=== PATIENT | female | born 1995 | race Caucasian/White ===

== ENCOUNTER 2024-07-27 13:41 | Outpatient (AMB) | payer MEDICAID, SELFPAY ==
[2024-07-27 13:55] VITALS: BP 123/75; PULSE 90; RESP 18; TEMP 36.8; O2SAT 98; BMI 27.7
--- NOTE | 2024-07-27 13:55 | OBCLNT_ITS ---
Vital Signs 07/27/24 13:55 Height 1.57 m Height Method Stated Weight 68.719 kg Weight Measurement Method Standing Scale BMI 27.7 BP 123/75 Blood Pressure Source Automatic Cuff Blood Pressure Location Right Upper Arm Position Sitting Respiration 18 Pulse 90 Pulse Source Monitor Temp 98.2 F Temp Source Temporal Artery Scan Pulse Oximetry (%) 98 Oxygen Delivery Method Room Air Allergies/Home Meds Allergies & Medications Allergies No Known Allergies Allergy (Verified 08/03/24 22:05) Intake Visit Data Collection New Patient or Established: New Patient (never been to [facility]) Reason for Visit:: NEW OB Pleater Hand Required: No Do You Feel Safe at Home: Yes Authorities Contacted: N/A PCP or OBGYN visit in last 3 months: No Hx Now: Yes Are you currently on any form of Control: No Last menstrual period: 04/05/24 Pain Present Currently: No Smoking Status Smoking Status: Never smoker Questionnaires Covid-19 Vaccine Questionnaire Has patient been vacinated for Covid-19 Have you been vacinated for Covid-19: No PHQ-9 PHQ-2 Over the last 2 weeks, how often have you been bothered by any of the following problems? 1. Little interest or pleasure in doing things: not at all 2. Feeling down, depressed, or hopeless: not at all Total score: 0 PHQ-9 3. Trouble falling or staying asleep, or sleeping too much: Not at all 4. Feeling tired or having little energy: Not at all 5. Poor appetite or overeating: Not at all 6. Feeling bad about yourself - or that you are a failure or have let yourself or your family down: Not at all 7. Trouble concentrating on things, such as reading the newspaper or watching television: Not at all 8. Moving or speaking so slowly that other people could have noticed? - Or the opposite - being so fidgety or restless that you have been moving around a lot more than usual: not at all 9. Thoughts that you would be better off or of hurting yourself in some way: Not at all Total score: 0 Source: Developed by Drs. Florian Rousseau, Maria L Sandoval, Ashwin Márquez and colleagues, with an educational lulu from [employer]. Depression screen completed yes Social History Living Situation History Marital Status: Lives With: Family Housing: House Housing Other:: Has a 2-year-old daughter is a police record specialist Tobacco History Smoking Status: Never smoker Domestic Abuse History Do You Feel Safe at Home: Yes History of Present Illness HPI Narrative Patient is a 28-year-old -0-0-1 with a history of x 1 in 2022 for arrest of dilation at 4 cm after being induced for two days at 41 weeks. She presents as a new OB appointment. Her LMP was April 05, 2024. OB Ultrasound Indication Indication: Size dates viability OB Ultrasound Ultrasound technique: transvaginal Gestational sac assessment: Presence, location, size, shape: Live intrauterine crown-rump length of 6.18 cm corresponding to 12 weeks 4 days. 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 Other Relevant History: Patient denies significant past medical history. She had pregestational diabetes with her first daughter. OB Initial Visit Menstrual History Menstrual reliability: definite Flow: normal Menstrual regularity: regular Monthly: Yes Age at menarche: 12 On control pills at conception: No Menstrual history comments: LMP 04/05/2024 OB History : 2 Para: 1 Hx # Pregnancies: 0 Hx Total # of Abortions (Spontaneous & Elective): 0 # of Living Children: 1 Delivery History 1st : sex: female Gestational age at delivery (weeks): 41 Delivery type: Delivery complications: IOL 41 weeks ended up with . Arrest of dilatation of 4 cm. Infection History & Risk Evaluation History of STDs: none HIV risk evaluation: low risk Hepatitis B risk evaluation: low risk Patient or partner has history of Genital Herpes: No Varicella/chicken pox status: unknown Genetic Screening & History Genetic Screening/Teratology Counseling - Includes patient, baby's father, or anyone in either family with: 1. Patient's age 35 years or older as of estimated date of delivery: No 2. Thalassemia (Peruvian, Albanian, Mediterranean, or Background); MCV less than 80: No 3. Neural Tube Defect (Meningomyelocele, Spina Bifida, or Anencephaly): No 4. Congenital Heart Defect: No 5. Down Syndrome: No 6. Abad-Sachs (Ashkenazi Taoist, Cajun, Belarusian Lanier): No 7. Judy Disease (Ashkenazi Taoist): No 8. Familial Dysautonomia (Ashkenazi Taoist): No 9. Sickle Cell Disease or Trait (): No 10. Hemophilia or other blood disorders: No 11. Muscular Dystrophy: No 12. Cystic Fibrosis: No 13. Juneau's Chorea: No 14. Mental Retardation/Autism: No 15. Other inherited genetic or chromosomal disorder: No 16. Maternal Metabolic Disorder (EG,TYPE 1 Diabetes, PKU): No 17. Patient or baby's father had a child with defects not listed above: No 18. Recurrent loss or a stillbirth: No 19. Medications (including supplements, vitamins, herbs or otc drugs)/illicit/recreational drugs/alcohol since last menstrual period: No 20. Any other: No Infection History 1. Live with someone with TB or exposed to TB: No 2. Rash or viral illness since last menstrual period: No 3. Hepatitis B,C: No Other (see comments) Source: [employer] Exam General Limitations: no limitations General Appearance: alert, in no apparent distress, comfortable, cooperative, healthy appearing and well groomed Neck Neck exam: Present normal inspection, full ROM and trachea midline Chest Chest inspection: Present normal inspection and symmetric chest wall rise Resp Respiratory exam: Present normal lung sounds bilaterally Card Cardiovascular exam: Present regular rate, normal rhythm and normal heart sounds Abdominal Abdominal exam: Present soft and normal bowel sounds Extremities Extremities exam: Present normal inspection and full ROM Psych Psychiatric exam: Present normal affect and normal mood Skin Skin exam: Present warm, dry, intact and normal color Office Procedures OB Clinic LOC & Office Proc's Nursing/Assessment Patient Status: Initial/New Patient OB Clinic Nursing Assessment: BP Monitoring, Medication Reconciliation, Update PMH in EMR and Vital Signs OB Clinic Coordination of Care: Complex Care and Chronic Disease 1-5, Cons ent,records obtained, informed consent, Lab and Imaging orders and Results/Orders obtained New Patient Charge New Patient Point Assignment: [id number] New Patient 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
== END 2024-07-27 14:54 | disposition home or self-care (01) ==
LOC: HODSOBC 13:41
PROVIDERS: PCP Obstetrics & Gynecology; Referring Provider Obstetrics & Gynecology; Supervising Provider Obstetrics & Gynecology; Visit Provider Obstetrics & Gynecology
DX: O09.291 Supervision of pregnancy with other poor reproductive or obstetric history, first trimester (principal); O34.219 Maternal care for unspecified type scar from previous cesarean delivery; Z87.59 Personal history of other complications of pregnancy, childbirth and the puerperium; Z3A.12 12 weeks gestation of pregnancy
CPT/HCPCS: 99203; G0463

== ENCOUNTER 2024-08-18 13:02 | Outpatient (AMB) | payer MEDICAID, SELFPAY ==
[2024-08-18 13:08] VITALS: BP 125/71; PULSE 86; RESP 17; TEMP 36.7; O2SAT 98; BMI 28.1
--- NOTE | 2024-08-18 13:08 | OBCLNT_ITS ---
Vital Signs 08/18/24 13:08 Height 1.57 m Height Method Stated Weight 69.4 kg Weight Measurement Method Standing Scale BMI 28.1 BP 125/71 Blood Pressure Source Automatic Cuff Blood Pressure Location Right Upper Arm Position Sitting Respiration 17 Pulse 86 Pulse Source Monitor Temp 98.0 F Temp Source Temporal Artery Scan Pulse Oximetry (%) 98 Oxygen Delivery Method Room Air Allergies/Home Meds Allergies & Medications Allergies No Known Allergies Allergy (Verified 08/18/24 13:09) Medication Reconciliation cephalexin 500 mg capsule 500 mg PO TID 7 days #21 caps 08/18/24 [Rx] Intake Visit Data Collection New Patient or Established: Established Patient (seen at [facility] within 3 years) Reason for Visit:: OBC Seen by Clinical Staff ONLY (RN/MA): No Sheet Catcher Required: No Do You Feel Safe at Home: Yes Authorities Contacted: N/A PCP or OBGYN visit in last 3 months: Yes Date of Last PCP or OBGYN visit: 07/27/24 Hx Now: Yes Are you currently on any form of Control: No Pain Present Currently: No Pain Scale Used: Tom-Christy/Numerical Pain scale:: 0 Smoking Status Smoking Status: Never smoker Questionnaires Covid-19 Vaccine Questionnaire Has patient been vacinated for Covid-19 Have you been vacinated for Covid-19: Yes PHQ-9 PHQ-2 Over the last 2 weeks, how often have you been bothered by any of the following problems? 1. Little interest or pleasure in doing things: not at all 2. Feeling down, depressed, or hopeless: not at all Total score: 0 PHQ-9 3. Trouble falling or staying asleep, or sleeping too much: Not at all 4. Feeling tired or having little energy: Not at all 5. Poor appetite or overeating: Not at all 6. Feeling bad about yourself - or that you are a failure or have let yourself or your family down: Not at all 7. Trouble concentrating on things, such as reading the newspaper or watching television: Not at all 8. Moving or speaking so slowly that other people could have noticed? - Or the opposite - being so fidgety or restless that you have been moving around a lot more than usual: not at all 9. Thoughts that you would be better off or of hurting yourself in some way: Not at all Total score: 0 If you checked off any problems, how difficult have these problems made it for you to do your work, take care of things at home, or get along with other people?: not difficult at all Source: Developed by Drs. Florian Rousseau, Maria L Sandoval, Ashwin Márquez and colleagues, with an educational lulu from [employer]. Depression screen completed yes Social History Living Situation History Marital Status: Life Partner Lives With: Family Housing: House Housing Other:: Has a 2-year-old daughter is a police record specialist Tobacco History Smoking Status: Never smoker Second Hand Smoke Exposure: No Alcohol History Alcohol Intake: Never Domestic Abuse History Do You Feel Safe at Home: Yes History of Present Illness HPI Narrative Patient is a 28-year-old -0-0-1 presents for care. History of C- section x 1. Will need a repeat . Care OB Visit Log OB Flowsheet Initial Weight: Not Recorded Date -?-?-?-?-?-?-?-?-?-?-?-?- EGA Weight BP Alb Glu CTX Pres Fundal ht FHR Mov Dilation Station Effacement Hx Notes Visit Note 08/18/24 -?-?-?-?-?-?-?-?-?-?-?-?- 15w 5d 69.4 kg 125/71 137 absent No vaginal bleeding no contractions. Needs Keflex for an E. coli positive urine specimen. NIPT 46XX. Knows it is another girl. SHIRA Calculator Estimated Delivery Date Method Current WG Current Estimate 02/04/25 Ultrasound #1 15w 5d Other Estimates 01/10/25 LMP (Uncertain) 19w 2d Expected Delivery Route/Plan Previous for elective repeat Specific Issue/Plans -0-0-1 x 1 for arrest of dilation labs are as follows:A+/antibody screen negative/ rubella immune/RPR nonreactive/HIV negative/hepatitis B surface antigen negative/hep C negative/NIPT 46XX/+100,000 E. coli sensitive to Keflex. Treated with Keflex. GC negative/chlamydia negative Notes Visit Date: 08/18/24 Last Updated by: Kary Negron (OB Clinic)MD Her first daughter is very hard of hearing and almost deaf. All workup for genetic disorders has been negative. Office Procedures OB Clinic LOC & Office Proc's Nursing/Assessment Patient Status: Established Patient OB Clinic Nursing Assessment: Medication Reconciliation, Update PMH in EMR and Vital Signs OB Clinic Coordination of Care: Complex Care and Chronic Disease 1-5, Consent,records obtained, informed consent, Education Simp Pt/Fam and Staff clarify orders Special Needs: Heart tones Established Patient Charge Established Patient Point Assignment: 115 Established Patient Point Charge: EP Level 3 (80-115) Assessment & Plan Diagnosis / Problem List (1) Previous section: Status: Acute Assessment and Plan: For elective repeat at 39 weeks (2) : Status: Acute Qualifiers: Weeks of gestation: 16 weeks Qualified Code(s): Z3A.16 - 16 weeks gestation of Assessment and Plan: Follow-up in 4 weeks. Structural survey ordered Additional Plan Follow Up: 4 Weeks
== END 2024-08-18 13:32 | disposition home or self-care (01) ==
LOC: HODSOBC 13:02
PROVIDERS: Supervising Provider Obstetrics & Gynecology; Visit Provider Obstetrics & Gynecology
DX: O09.292 Supervision of pregnancy with other poor reproductive or obstetric history, second trimester (principal); O34.219 Maternal care for unspecified type scar from previous cesarean delivery; Z3A.15 15 weeks gestation of pregnancy; Z87.59 Personal history of other complications of pregnancy, childbirth and the puerperium
CPT/HCPCS: 99213; G0463

== ENCOUNTER 2024-09-14 13:47 | Outpatient (AMB) | payer MEDICAID, SELFPAY ==
[2024-09-14 13:57] VITALS: BP 121/77; PULSE 86; RESP 17; TEMP 36.8; O2SAT 98; BMI 28.6
--- NOTE | 2024-09-14 13:57 | AMB.OBVISIT ---
Vital Signs 09/14/24 13:57 Height 1.57 m Height Method Stated Weight 70.534 kg Weight Measurement Method Standing Scale BMI 28.6 BP 121/77 Blood Pressure Source Automatic Cuff Blood Pressure Location Right Upper Arm Position Sitting Respiration 17 Pulse 86 Pulse Source Monitor Temp 98.2 F Temp Source Temporal Artery Scan Pulse Oximetry (%) 98 Oxygen Delivery Method Room Air Allergies/Home Meds Allergies & Medications Allergies No Known Allergies Allergy (Verified 09/14/24 13:58) Medication Reconciliation No Known Home Medications 09/14/24 [History Confirmed 09/14/24] Intake Visit Data Collection New Patient or Established: Established Patient (seen at [facility] within 3 years) Reason for Visit:: OBC 19W Seen by Clinical Staff ONLY (RN/MA): No Production Sanitizer Required: No Do You Feel Safe at Home: Yes Authorities Contacted: N/A PCP or OBGYN visit in last 3 months: Yes Date of Last PCP or OBGYN visit: 08/18/24 Hx Now: Yes Are you currently on any form of Control: No Pain Present Currently: No Pain Scale Used: Tom-Christy/Numerical Pain scale:: 0 Smoking Status Smoking Status: Never smoker Questionnaires Covid-19 Vaccine Questionnaire Has patient been vacinated for Covid-19 Have you been vacinated for Covid-19: No PHQ-9 PHQ-2 Over the last 2 weeks, how often have you been bothered by any of the following problems? 1. Little interest or pleasure in doing things: not at all 2. Feeling down, depressed, or hopeless: not at all Total score: 0 PHQ-9 3. Trouble falling or staying asleep, or sleeping too much: Not at all 4. Feeling tired or having little energy: Not at all 5. Poor appetite or overeating: Not at all 6. Feeling bad about yourself - or that you are a failure or have let yourself or your family down: Not at all 7. Trouble concentrating on things, such as reading the newspaper or watching television: Not at all 8. Moving or speaking so slowly that other people could have noticed? - Or the opposite - being so fidgety or restless that you have been moving around a lot more than usual: not at all 9. Thoughts that you would be better off or of hurting yourself in some way: Not at all Total score: 0 If you checked off any problems, how difficult have these problems made it for you to do your work, take care of things at home, or get along with other people?: not difficult at all Source: Developed by Drs. Florian Rousseau, Maria L Sandoval, Ashwin Márquez and colleagues, with an educational lulu from [employer]. Depression screen completed yes Social History Living Situation History Marital Status: Lives With: Family Housing: House Housing Other:: Has a 2-year-old daughter is a police record specialist Tobacco History Smoking Status: Never smoker Second Hand Smoke Exposure: No Alcohol History Alcohol Intake: Never Domestic Abuse History Do You Feel Safe at Home: Yes History of Present Illness HPI Narrative The patient is a 28 y/o hx CS x one who presents for [facility] Care OB Visit Log OB Flowsheet Initial Weight: Not Recorded Date <del>?</del> EGA Weight BP Alb Glu CTX Pres Fundal ht FHR Mov Dilation Station Effacement Hx Notes Visit Note 08/18/24 <del>?</del> 15w 5d 69.4 kg 125/71 137 absent No vaginal bleeding no contractions. Needs Keflex for an E. coli positive urine specimen. NIPT 46XX. Knows it is another girl. 09/14/24 <del>?</del> 19w 4d 70.534 kg 121/77 19 143 active +FM, Surgical Territory Manager UCs or LOF. Present with her mother SHIRA Calculator Estimated Delivery Date Method Current WG Current Estimate 02/04/25 Ultrasound #1 20w 2d Other Estimates 01/10/25 LMP (Uncertain) 23w 6d Expected Delivery Route/Plan Previous for elective repeat Specific Issue/Plans -0-0-1 x 1 for arrest of dilation labs are as follows:A+/antibody screen negative/ rubella immune/RPR nonreactive/HIV negative/hepatitis B surface antigen negative/hep C negative/NIPT 46XX/+100,000 E. coli sensitive to Keflex. Treated with Keflex. GC negative/chlamydia negative Notes Visit Date: 09/14/24 Last Updated by: Kary Negron (OB Clinic)MD Ordered SS CA imaging Theresa Visit Date: 08/18/24 Last Updated by: Kary Negron (OB Clinic)MD Her first daughter is very hard of hearing and almost deaf. All workup for genetic disorders has been negative. Office Procedures OB Clinic LOC & Office Proc's Nursing/Assessment Patient Status: Established Patient OB Clinic Nursing Assessment: Medication Reconciliation, Update PMH in EMR and Vital Signs OB Clinic Coordination of Care: Complex Care and Chronic Disease 1-5, Consent,records obtained, informed consent, Education Simp Pt/Fam and Staff clarify orders Special Needs: Heart tones Established Patient Charge Established Patient Point Assignment: 115 Established Patient Point Charge: EP Level 3 (80-115) Assessment & Plan Diagnosis / Problem List (1) Previous section: Status: Acute Plan: For elective repeat at 39 weeks (2) : Status: Acute Qualifiers: Weeks of gestation: 19 weeks Qualified Code(s): Z3A.19 - 19 weeks gestation of
== END 2024-09-14 14:59 | disposition home or self-care (01) ==
LOC: HODSOBC 13:47
PROVIDERS: PCP Obstetrics & Gynecology; Referring Provider Obstetrics & Gynecology; Supervising Provider Obstetrics & Gynecology; Visit Provider Obstetrics & Gynecology
DX: O09.292 Supervision of pregnancy with other poor reproductive or obstetric history, second trimester (principal); O34.219 Maternal care for unspecified type scar from previous cesarean delivery; Z87.59 Personal history of other complications of pregnancy, childbirth and the puerperium; Z3A.19 19 weeks gestation of pregnancy
CPT/HCPCS: 99213; G0463

== ENCOUNTER 2024-10-12 14:45 | Outpatient (AMB) | payer MEDICAID, SELFPAY ==
[2024-10-12 15:04] VITALS: BP 127/79; PULSE 113; RESP 16; TEMP 36.2; O2SAT 98; BMI 28.8
--- NOTE | 2024-10-12 15:04 | AMB.OBVISIT ---
Vital Signs 10/12/24 15:04 Height 1.57 m Height Method Stated Weight 70.931 kg Weight Measurement Method Standing Scale BMI 28.8 BP 127/79 Blood Pressure Source Automatic Cuff Blood Pressure Location Left Upper Arm Position Sitting Respiration 16 Pulse 113 H Pulse Source Monitor Temp 97.2 F Temp Source Oral Pulse Oximetry (%) 98 Oxygen Delivery Method Room Air Allergies/Home Meds Allergies & Medications Allergies No Known Allergies Allergy (Verified 10/12/24 15:05) Medication Reconciliation No Known Home Medications 09/14/24 [History Confirmed 10/12/24] Intake Visit Data Collection New Patient or Established: Established Patient (seen at [facility] within 3 years) Reason for Visit:: OBC Seen by Clinical Staff ONLY (RN/MA): No Rotary Drill Operator Required: No Do You Feel Safe at Home: Yes Authorities Contacted: N/A PCP or OBGYN visit in last 3 months: Yes Date of Last PCP or OBGYN visit: 09/14/24 Hx Now: Yes Are you currently on any form of Control: No Pain Present Currently: No Pain Scale Used: Tom-Christy/Numerical Pain scale:: 0 Smoking Status Smoking Status: Never smoker Questionnaires Covid-19 Vaccine Questionnaire Has patient been vacinated for Covid-19 Have you been vacinated for Covid-19: Yes PHQ-9 PHQ-2 Over the last 2 weeks, how often have you been bothered by any of the following problems? 1. Little interest or pleasure in doing things: not at all 2. Feeling down, depressed, or hopeless: not at all Total score: 0 PHQ-9 3. Trouble falling or staying asleep, or sleeping too much: Not at all 4. Feeling tired or having little energy: Not at all 5. Poor appetite or overeating: Not at all 6. Feeling bad about yourself - or that you are a failure or have let yourself or your family down: Not at all 7. Trouble concentrating on things, such as reading the newspaper or watching television: Not at all 8. Moving or speaking so slowly that other people could have noticed? - Or the opposite - being so fidgety or restless that you have been moving around a lot more than usual: not at all 9. Thoughts that you would be better off or of hurting yourself in some way: Not at all Total score: 0 If you checked off any problems, how difficult have these problems made it for you to do your work, take care of things at home, or get along with other people?: not difficult at all Source: Developed by Drs. Florian Rousseau, Maria L Sandoval, Ashwin Márquez and colleagues, with an educational lulu from [employer]. Depression screen completed yes Social History Living Situation History Marital Status: Lives With: Family Housing: House Housing Other:: Has a 2-year-old daughter is a police record specialist Tobacco History Smoking Status: Never smoker Second Hand Smoke Exposure: No Alcohol History Alcohol Intake: Never Domestic Abuse History Do You Feel Safe at Home: Yes Care OB Visit Log OB Flowsheet Initial Weight: Not Recorded Date <del>?</del> EGA Weight BP Alb Glu CTX Pres Fundal ht FHR Mov Dilation Station Effacement Hx Notes Visit Note 08/18/24 <del>?</del> 15w 5d 69.4 kg 125/71 137 absent No vaginal bleeding no contractions. Needs Keflex for an E. coli positive urine specimen. NIPT 46XX. Knows it is another girl. 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 Present with her mother 10/12/24 <del>?</del> 23w 4d 70.931 kg 127/79 24 127 active +FM No UCs or LOF Will need GCT next visit SHIRA Calculator Estimated Delivery Date Method Current WG Current Estimate 02/04/25 Ultrasound #1 24w 2d Other Estimates 01/10/25 LMP (Uncertain) 27w 6d Expected Delivery Route/Plan Previous for elective repeat Specific Issue/Plans -0-0-1 x 1 for arrest of dilation labs are as follows:A+/antibody screen negative/ rubella immune/RPR nonreactive/HIV negative/hepatitis B surface antigen negative/hep C negative/NIPT 46XX/+100,000 E. coli sensitive to Keflex. Treated with Keflex. GC negative/chlamydia negative Notes Visit Date: 09/14/24 Last Updated by: Kary Negron (OB Clinic)MD Ordered SS CA imaging Theresa Visit Date: 08/18/24 Last Updated by: Kary Negron (OB Clinic)MD Her first daughter is very hard of hearing and almost deaf. All workup for genetic disorders has been negative. Office Procedures OB Clinic LOC & Office Proc's Nursing/Assessment Patient Status: Established Patient OB Clinic Nursing Assessment: Medication Reconciliation, Update PMH in EMR and Vital Signs OB Clinic Coordination of Care: Education Complex Pt/Fam, Consent,records obtained, informed consent, Lab and Imaging orders and Staff clarify orders Special Needs: Heart tones Established Patient Charge Established Patient Point Assignment: 110 Established Patient Point Charge: EP Level 3 (80-115) Assessment & Plan Diagnosis / Problem List (1) Previous section: Status: Acute Plan: For repeat CS at 39 weeks (2) : Status: Acute Qualifiers: Weeks of gestation: 23 weeks Qualified Code(s): Z3A.23 - 23 weeks gestation of Plan: GCT next time
== END 2024-10-12 15:20 | disposition home or self-care (01) ==
LOC: HODSOBC 14:45
PROVIDERS: PCP Obstetrics & Gynecology; Referring Provider Obstetrics & Gynecology; Supervising Provider Obstetrics & Gynecology; Visit Provider Obstetrics & Gynecology
DX: O09.292 Supervision of pregnancy with other poor reproductive or obstetric history, second trimester (principal); O34.219 Maternal care for unspecified type scar from previous cesarean delivery; Z87.59 Personal history of other complications of pregnancy, childbirth and the puerperium; Z3A.23 23 weeks gestation of pregnancy
CPT/HCPCS: 99213; G0463

== ENCOUNTER 2024-11-11 14:53 | Outpatient (AMB) | payer OTHER, SELFPAY ==
[2024-11-11 15:03] VITALS: BP 125/80; PULSE 97; RESP 18; TEMP 36.6; O2SAT 98; BMI 29.4
--- NOTE | 2024-11-11 15:03 | AMB.OBVISIT ---
Vital Signs 11/11/24 15:03 Height 1.57 m Height Method Stated Weight 72.575 kg Weight Measurement Method Standing Scale BMI 29.4 BP 125/80 Blood Pressure Source Automatic Cuff Blood Pressure Location Left Upper Arm Position Sitting Respiration 18 Pulse 97 Pulse Source Monitor Temp 97.8 F Temp Source Oral Pulse Oximetry (%) 98 Oxygen Delivery Method Room Air Allergies/Home Meds Allergies & Medications Allergies No Known Allergies Allergy (Verified 11/11/24 15:04) Medication Reconciliation No Known Home Medications 09/14/24 [History Confirmed 11/11/24] Intake Visit Data Collection New Patient or Established: Established Patient (seen at [facility] within 3 years) Reason for Visit:: CARE Consent obtained for Telemed Visit: No Seen by Clinical Staff ONLY (RN/MA): No Astronaut Mission Specialist Required: No Do You Feel Safe at Home: Yes Authorities Contacted: N/A PCP or OBGYN visit in last 3 months: Yes Hx Now: Yes Are you currently on any form of Control: No Pain Present Currently: No Pain Scale Used: Tom-Christy/Numerical Pain scale:: 0 Smoking Status Smoking Status: Never smoker Questionnaires Covid-19 Vaccine Questionnaire Has patient been vacinated for Covid-19 Have you been vacinated for Covid-19: Yes PHQ-9 PHQ-2 Over the last 2 weeks, how often have you been bothered by any of the following problems? 1. Little interest or pleasure in doing things: not at all 2. Feeling down, depressed, or hopeless: not at all Total score: 0 PHQ-9 3. Trouble falling or staying asleep, or sleeping too much: Not at all 4. Feeling tired or having little energy: Not at all 5. Poor appetite or overeating: Not at all 6. Feeling bad about yourself - or that you are a failure or have let yourself or your family down: Not at all 7. Trouble concentrating on things, such as reading the newspaper or watching television: Not at all 8. Moving or speaking so slowly that other people could have noticed? - Or the opposite - being so fidgety or restless that you have been moving around a lot more than usual: not at all 9. Thoughts that you would be better off or of hurting yourself in some way: Not at all Total score: 0 Source: Developed by Drs. Florian Rousseau, Maria L Sandoval, Ashwin Márquez and colleagues, with an educational lulu from [employer]. 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 Needs Keflex for an E. coli positive urine specimen. NIPT 46XX. Knows it is another girl. 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 Present with her mother 10/12/24 <del>?</del> 23w 4d 70.931 kg 127/79 24 127 active +FM No UCs or LOF Will need GCT next visit 11/11/24 <del>?</del> 27w 6d 72.575 kg 125/80 absent 26 156 active Good movement no contractions or loss of fluids [facility] [place] SHIRA Calculator Estimated Delivery Date Method Current WG Current Estimate 02/04/25 Ultrasound #1 27w 6d Other Estimates 01/10/25 LMP (Uncertain) 31w 3d Expected Delivery Route/Plan Previous for elective repeat EDC 02/04/25 Specific Issue/Plans -0-0-1 x 1 for arrest of dilation labs are as follows:A+/antibody screen negative/ rubella immune/RPR nonreactive/HIV negative/hepatitis B surface antigen negative/hep C negative/NIPT 46XX/+100,000 E. coli sensitive to Keflex. Treated with Keflex. GC negative/chlamydia negative Notes Visit Date: 11/11/24 Last Updated by: Kary Negron (OB Clinic)MD Patient is doing very well. We will plan a repeat around January 27. Due date 02/04/2025. Her daughter is going to get cochlear implants. She has a lot of doctors appointments coming up. The surgery is scheduled for 12/14/2024. Visit Date: 09/14/24 Last Updated by: Kary Negron (OB Clinic)MD Ordered SS CA imaging [place] Visit Date: 08/18/24 Last Updated by: Kary Negron (OB Clinic)MD Her first daughter is very hard of hearing and almost deaf. All workup for genetic disorders has been negative. Office Procedures OBC Clinic LOC & Office Proc's Nursing/Assessment Patient Status: Established Patient OB Clinic Nursing Assessment: Medication Reconciliation, Update PMH in EMR and Vital Signs OB Clinic Coordination of Care: Complex Care and Chronic Disease 1-5, Consent,records obtained, informed consent, Education Simp Pt/Fam, Lab and Imaging orders, Results/Orders obtained and Staff clarify orders Special Needs: Heart tones Established Patient Charge Established Patient Point Assignment: 135 Established Patient Point Charge: EP Level 4 (120-155) Assessment & Plan Diagnosis / Problem List (1) Previous section: Status: Acute Plan: For elective repeat at 39 weeks (2) : Status: Acute Qualifiers: Weeks of gestation: 27 weeks Qualified Code(s): Z3A.27 - 27 weeks gestation of
== END 2024-11-11 15:21 | disposition home or self-care (01) ==
LOC: HODSOBC 14:53
PROVIDERS: PCP Obstetrics & Gynecology; Referring Provider Obstetrics & Gynecology; Supervising Provider Obstetrics & Gynecology; Visit Provider Obstetrics & Gynecology
DX: O09.292 Supervision of pregnancy with other poor reproductive or obstetric history, second trimester (principal); O34.219 Maternal care for unspecified type scar from previous cesarean delivery; Z87.59 Personal history of other complications of pregnancy, childbirth and the puerperium; Z3A.27 27 weeks gestation of pregnancy
CPT/HCPCS: 99214; G0463

== ENCOUNTER 2024-11-30 15:20 | Outpatient (AMB) | payer BC, SELFPAY ==
[2024-11-30 15:40] VITALS: BP 128/79; PULSE 100; RESP 17; TEMP 36.5; O2SAT 97; BMI 29.9
--- NOTE | 2024-11-30 15:40 | OBCLNT_ITS ---
Vital Signs 11/30/24 15:40 Height 1.57 m Height Method Stated Weight 73.709 kg Weight Measurement Method Standing Scale BMI 29.9 BP 128/79 Blood Pressure Source Automatic Cuff Blood Pressure Location Right Upper Arm Position Sitting Respiration 17 Pulse 100 Pulse Source Monitor Temp 97.7 F Temp Source Temporal Artery Scan Pulse Oximetry (%) 97 Oxygen Delivery Method Room Air Allergies/Home Meds Allergies & Medications Allergies No Known Allergies Allergy (Verified 11/30/24 15:41) Medication Reconciliation No Known Home Medications 09/14/24 [History Confirmed 11/30/24] Intake Visit Data Collection New Patient or Established: Established Patient (seen at [facility] within 3 years) Reason for Visit:: OBC Seen by Clinical Staff ONLY (RN/MA): No Catalyst Concentration Operator Required: No Do You Feel Safe at Home: Yes Authorities Contacted: N/A PCP or OBGYN visit in last 3 months: Yes Date of Last PCP or OBGYN visit: 11/11/24 Hx Now: Yes Are you currently on any form of Control: No Pain Present Currently: No Smoking Status Smoking Status: Never smoker Questionnaires Covid-19 Vaccine Questionnaire Has patient been vacinated for Covid-19 Have you been vacinated for Covid-19: No PHQ-9 PHQ-2 Over the last 2 weeks, how often have you been bothered by any of the following problems? 1. Little interest or pleasure in doing things: not at all 2. Feeling down, depressed, or hopeless: not at all Total score: 0 PHQ-9 3. Trouble falling or staying asleep, or sleeping too much: Not at all 4. Feeling tired or having little energy: Not at all 5. Poor appetite or overeating: Not at all 6. Feeling bad about yourself - or that you are a failure or have let yourself or your family down: Not at all 7. Trouble concentrating on things, such as reading the newspaper or watching television: Not at all 8. Moving or speaking so slowly that other people could have noticed? - Or the opposite - being so fidgety or restless that you have been moving around a lot more than usual: not at all 9. Thoughts that you would be better off or of hurting yourself in some way: Not at all Total score: 0 If you checked off any problems, how difficult have these problems made it for you to do your work, take care of things at home, or get along with other people?: not difficult at all Source: Developed by Drs. Florian Rousseau, Maria L Sandoval, Ashwin Márquez and colleagues, with an educational lulu from [employer]. 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 Needs Keflex for an E. coli positive urine specimen. NIPT 46XX. Knows it is another girl. 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 Present with her mother 10/12/24 -?-?-?-?-?-?-?-?-?-?-?-?- 23w 4d 70.931 kg 127/79 24 127 active +FM No UCs o r LOF Will need GCT next visit 11/11/24 -?-?-?-?-?-?-?-?-?-?-?-?- 27w 6d 72.575 kg 125/80 absent 26 156 ac tive Good movement no contractions or loss of fluids O r[facility] [place] 11/30/24 -?-?-?-?-?-?-?-?-?-?-?-?- 30w 4d 73.709 kg 128/79 absent unknown 29 145 active Reports good movement. Denies contractions. Denies leaking, denies bleeding. Patient will do her 1 hour Glucola next week. Patient had questions about disability Schedule with OB because of previous . Discussed labor precautions. Patient wanted to continue working. Continue prenatals. Patient will do her 1 hour Glucola next week. Return in 2 weeks OB check SHIRA Calculator Estimated Delivery Date Method Current WG Current Estimate 02/04/25 Ultrasound #1 30w 4d Other Estimates 01/10/25 LMP (Uncertain) 34w 1d Expected Delivery Route/Plan Previous for elective repeat EDC 02/04/25 Specific Issue/Plans -0-0-1 x 1 for arrest of dilation labs are as follows:A+/antibody screen negative/ rubella immune/RPR nonreactive/HIV negative/hepatitis B surface antigen negative/hep C negative/NIPT 46XX/+100,000 E. coli sensitive to Keflex. Treated with Keflex. GC negative/chlamydia negative Notes Visit Date: 11/30/24 Last Updated by: Audra Truong CNM OB panel: A+,abs-, rpr;;nr, rub imm, hbsag-,hiv-,hc-, GC/CT-, NIPT/AFP- Visit Date: 11/11/24 Last Updated by: Kary Negron (OB Clinic)MD Patient is doing very well. We will plan a repeat around January 27. Due date 02/04/2025. Her daughter is going to get cochlear implants. She has a lot of doctors appointments coming up. The surgery is scheduled for 12/14/2024. Visit Date: 09/14/24 Last Updated by: Kary Negron (OB Clinic)MD Ordered SS CA imaging [place] Visit Date: 08/18/24 Last Updated by: Kary Negron (OB Clinic)MD Her first daughter is very hard of hearing and almost deaf. All workup for genetic disorders has been negative. Office Procedures OBC Clinic LOC & Office Proc's Nursing/Assessment Patient Status: Established Patient OB Clinic Nursing Assessment: Medication Reconciliation, Update PMH in EMR and Vital Signs OB Clinic Coordination of Care: Complex Care and Chronic Disease 1-5, Education Complex Pt/Fam, Consent,records obtained, informed consent and Staff clarify orders Special Needs: Heart tones Established Patient Charge Established Patient Point Assignment: 120 Established Patient Point Charge: EP Level 4 (120-155) Assessment & Plan Diagnosis / Problem List (1) Encounter for supervision of high risk in third trimester, antepartum: Status: Acute (2) Previous section: Status: Acute Plan Schedule with MD for previous . Discussed labor precautions. I discussed Tdap. Patient declined. Increase fluids. And return in 2 weeks for OB check. patient to get GTT Additional Plan Follow Up: 2 Weeks (obc)
== END 2024-11-30 16:09 | disposition home or self-care (01) ==
LOC: HODSOBC 15:20
PROVIDERS: PCP Obstetrics & Gynecology; Referring Provider Obstetrics & Gynecology; Supervising Provider Advanced Practice Midwife; Visit Provider Advanced Practice Midwife
DX: O09.293 Supervision of pregnancy with other poor reproductive or obstetric history, third trimester (principal); O34.219 Maternal care for unspecified type scar from previous cesarean delivery; Z3A.30 30 weeks gestation of pregnancy; Z28.21 Immunization not carried out because of patient refusal
CPT/HCPCS: 99214; G0463

== ENCOUNTER 2024-12-22 15:15 | Outpatient (AMB) | payer BC, SELFPAY ==
[2024-12-22 15:30] VITALS: BP 127/83; PULSE 78; RESP 18; TEMP 36.6; O2SAT 98; BMI 30.7
--- NOTE | 2024-12-22 15:30 | OBCLNT_ITS ---
Vital Signs 12/22/24 15:30 Height 1.57 m Height Method Stated Weight 75.75 kg Weight Measurement Method Standing Scale BMI 30.7 BP 127/83 Blood Pressure Source Automatic Cuff Blood Pressure Location Left Upper Arm Position Sitting Respiration 18 Pulse 78 Pulse Source Monitor Temp 97.8 F Temp Source Temporal Artery Scan Pulse Oximetry (%) 98 Oxygen Delivery Method Room Air Allergies/Home Meds Allergies & Medications Allergies No Known Allergies Allergy (Verified 01/20/25 12:12) Medication Reconciliation vitamins no.102-iron 90 mg-folate 1 mg-dha 200 mg capsule 1 cap PO QDAY 01/20/25 [History Confirmed 01/20/25] Intake Visit Data Collection New Patient or Established: Established Patient (seen at [facility] within 3 years) Reason for Visit:: OBC Seen by Clinical Staff ONLY (RN/MA): No Warp Drawer Required: No Do You Feel Safe at Home: Yes Authorities Contacted: N/A PCP or OBGYN visit in last 3 months: Yes Date of Last PCP or OBGYN visit: 11/30/24 Hx Now: Yes Are you currently on any form of Control: No Pain Present Currently: No Pain Scale Used: Tom-Christy/Numerical Pain scale:: 0 Smoking Status Smoking Status: Never smoker Immunizations Flu Vaccine in the Last 12 Months: No Flu Vaccine Exclusion Criteria: No Exclusion Criteria Questionnaires Covid-19 Vaccine Questionnaire Has patient been vacinated for Covid-19 Have you been vacinated for Covid-19: No PHQ-9 PHQ-2 Over the last 2 weeks, how often have you been bothered by any of the following problems? 1. Little interest or pleasure in doing things: not at all 2. Feeling down, depressed, or hopeless: not at all Total score: 0 PHQ-9 3. Trouble falling or staying asleep, or sleeping too much: Not at all 4. Feeling tired or having little energy: Not at all 5. Poor appetite or overeating: Not at all 6. Feeling bad about yourself - or that you are a failure or have let yourself or your family down: Not at all 7. Trouble concentrating on things, such as reading the newspaper or watching television: Not at all 8. Moving or speaking so slowly that other people could have noticed? - Or the opposite - being so fidgety or restless that you have been moving around a lot more than usual: not at all 9. Thoughts that you would be better off or of hurting yourself in some way: Not at all Total score: 0 If you checked off any problems, how difficult have these problems made it for you to do your work, take care of things at home, or get along with other people?: not difficult at all Source: Developed by Drs. Florian Rousseau, Maria L Sandoval, Ashwin Márquez and colleagues, with an educational lulu from [email or web address]. 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 Needs Keflex for an E. coli positive urine specimen. NIPT 46XX. Knows it is another girl. 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 Present with her mother 10/12/24 -?-?-?-?-?-?-?-?-?-?-?-?- 23w 4d 70.931 kg 127/79 24 127 active +FM No UCs o r LOF Will need GCT next visit 11/11/24 -?-?-?-?-?-?-?-?-?-?-?-?- 27w 6d 72.575 kg 125/80 absent 26 156 ac tive Good movement no contractions or loss of fluids O rdered glucose challenge test CBC and RPR at [facility] in [place] 11/30/24 -?-?-?-?-?-?-?-?-?-?-?-?- 30w 4d 73.709 kg 128/79 absent unknown 29 145 active Reports good movement. Denies contractions. Denies leaking, denies bleeding. Patient will do her 1 hour Glucola next week. Patient had questions about disability Schedule with OB because of previous . Discussed labor precautions. Patient wanted to continue working. Continue prenatals. Patient will do her 1 hour Glucola next week. Return in 2 weeks OB check 12/22/24 -?-?-?-?-?-?-?-?-?-?-?-?- 33w 5d 75.75 kg 127/83 absent cephalic 30 138 active - She reports the baby is active, which she notes as a positive sign. - She acknowledges eating a lot of sugar and understands the connection between sugar intake and its effects on her bloodstream. - She reports occasionally seeing floate rs in her eyes. - These episodes are intermittent and not persistent - She confirms taking her vitam ins as prescribed. - This is not her first , as kizzy rutledge had a previous section at [facility]. - C-secti on scheduled for January 30 at 7:30 AM (39 weeks gestation) - Dr. Negron will perform the - Weekly appointments from now onwards - Continue taking vitamins - instruction sheet to be prov ided the week before surgery - Return if visual floaters persist for more than an hour 12/29/24 -?-?-?-?-?-?-?-?-?-?-?-?- 34w 5d 76.317 kg 138/85 absent unknown 35 144 active - She reports increased fatigue and difficulty with walking compared to her previous . - States literally I'm just walking a nd I'm getting tired and it's so refreshing - Notes that this time I feel like li terally I'm just walking and I'm getting tired - She experiences pain related to her C- section scar stretching. 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 - She is considering when to start mater nity leave, initially planning to work until delivery but now reconsidering due to increased fatigue. - Baby remains active with no reported l eaking or other concerning symptoms. - She denies any leaking fluid. - Patient may discontinue work at 36 weeks gestation if desired - Patient to check with HR regarding [employer] availability and disability claim process - File disability claim online through [employer] website if choosing to go out on leave - Group B Strep culture to be performed at next visit (36-37 weeks) - Weekly appointments to contin ue - Next appointment scheduled for 01/06/25 -?-?-?-?-?-?-?-?-?-?-?-?- 35w 6d 76.714 kg 126/84 absent cephalic 36 145 active - She reports possibly experiencing some contractions but describes them as breaths and not concerning. - She denies leaking fluid or bloody dis charge. - Patient reports baby is moving well. - She is currently still working and akanksha ns to continue working through next week to maintain holiday pay benefits. - Patient is requesting a work leave letter with a start date of . - Provide future-dated work leave letter starting January 16 - Include date on work leave d ocumentation - Follow-up appointment scheduled for thursday morning - Continue current work schedule through next week to maintain holiday pay eligibility 01/11/25 -?-?-?-?-?-?-?-?-?-?-?-?- 36w 4d 78.018 kg 133/77 absent unknown 37 145 active - Zenaida Quarles is here for a appointment at 36 weeks and 5 days gestation with a scheduled section on January 30. - She reports feeling very tired. - She experiences intermittent contracti ons that come and go. - She denies persistent contractions las ting beyond 45 minutes. - She denies leaking fluid. - She is planning to start maternity leave on Thursday. - Scheduled section for January 30 at 7:30 AM - Patient to come to hospital if contrac tions persist beyond 45 minutes to 1 hour due to risk of uterine scar dehiscence from previous - Work leave note to be provided cherry ragini Thursday - One follow-up appointment scheduled an y time before January 30 - GBS results pending - Patient advised to maintain hydration 01/20/25 -?-?-?-?-?-?-?-?-?-?-?-?- 37w 6d 79.095 kg 148/93 absent unknown 38 155 active - She is scheduled for repeat on January 30. - Patient reports elevated blood pressur e readings. - She denies headaches, epigastric pain, or vision spots for a couple of weeks. - Sleep has been poor, which she attribu berny as possibly causing her elevated blood pressure. - Baby remains active with normal heartbeat at 156. - Blood pressure recheck needed - If blood pressure below 130/80, no act ion required - If blood pressure above 130/80, pre-ec lampsia workup needed - Pre-eclampsia panel ordered (blood pre ssure rechecked at 150/92) - scheduled for January 30 SHIRA Calculator Estimated Delivery Date Method Current WG Current Estimate 02/04/25 Ultrasound #1 37w 6d Other Estimates 01/10/25 LMP (Uncertain) 41w 3d Expected Delivery Route/Plan Previous for elective repeat EDC 02/04/25 Specific Issue/Plans -0-0-1 x 1 for arrest of dilation labs are as follows:A+/antibody screen negative/ rubella immune/RPR nonreactive/HIV negative/hepatitis B surface antigen negative/hep C negative/NIPT 46XX/+100,000 E. coli sensitive to Keflex. Treated with Keflex. GC negative/chlamydia negative Notes Visit Date: 11/30/24 Last Updated by: Audra Truong CNM OB panel: A+,abs-, rpr;;nr, rub imm, hbsag-,hiv-,hc-, GC/CT-, NIPT/AFP- Visit Date: 11/11/24 Last Updated by: Kary Negron (OB Clinic)MD Patient is doing very well. We will plan a repeat around January 27. Due date 02/04/2025. Her daughter is going to get cochlear implants. She has a lot of doctors appointments coming up. The surgery is scheduled for 12/14/2024. Visit Date: 09/14/24 Last Updated by: Kary Negron (OB Clinic)MD Ordered SS CA imaging [place] Visit Date: 08/18/24 Last Updated by: Kary Negron (OB Clinic)MD Her first daughter is very hard of hearing and almost deaf. All workup for genetic disorders has been negative. Office Procedures OBC Clinic LOC & Office Proc's Nursing/Assessment Patient Status: Established Patient OB Clinic Nursing Assessment: Medication Reconciliation, Update PMH in EMR and Vital Signs OB Clinic Coordination of Care: Complex Care and Chronic Disease 1-5, Education Complex Pt/Fam, Consent,records obtained, informed consent and Staff clarify orders Special Needs: Heart tones Established Patient Charge Established Patient Point Assignment: 120 Established Patient Point Charge: EP Level 4 (120-155) Assessment & Plan Diagnosis / Problem List (1) Encounter for supervision of high risk in third trimester, antepartum: Status: Acute (2) Previous section: Status: Acute Plan Assessment Patient is a woman at 39 weeks gestation with due date of February 04 presenting for routine care. heart rate is normal at 138-139 bpm with active movement reported. Patient reports occasional visual floaters but blood pressure is normal, making preeclampsia less likely. Patient has history of prior section and is scheduled for repeat delivery. Plan - scheduled for January 30 at 7:30 AM (39 weeks gestation) - Dr. Negron will perform the - Weekly appointments from now onwards - Continue taking vitamins - instruction sheet to be provided the week before surgery - Return if visual floaters persist for more than an hour 1. Progress Reviewed gestational age, growth, and heart rate. heart rate was 138-139 bpm, which is normal. Patient reports baby is active. Due date is February 04, with 39 weeks on January 28. scheduled for ThursdayJanuary 30 at 7:30 AM. Planned weekly visits from now onwards. 2. Instructed patient to monitor movements and report decreases immediately. 3. Testing Counseled on routine third-trimester labs per guidelines. Discussed potential need for ultrasound or monitoring based on risk factors. 4. Preeclampsia Precaution Patient reported occasional visual floaters. Educated that floaters alone are generally benign, but in combination with high blood pressure can be a sign of preeclampsia. Blood pressure appears normal, so not currently concerning. Advised to seek care if floaters persist for more than an hour. Educated on preeclampsia signs: severe headache, vision changes, right upper quadrant pain, sudden swelling. 5. Labor Precautions Reviewed labor signs: regular contractions, pelvic pressure, back pain, bleeding, or fluid leakage. Instructed to seek immediate care for these symptoms. 6. Lifestyle and Delivery Preparation Patient confirmed taking vitamins and advised to continue. Discussed that increased activity may be related to sugar intake. will be performed by Dr. Lam. Complete instruction sheet will be provided the week before . Reinforced vitamins, nutrition, and safe activity. 7. Psychosocial Support Assessed emotional well-being and offered resources for mental health or parenting support.
== END 2024-12-22 15:41 | disposition home or self-care (01) ==
LOC: HODSOBC 15:15
PROVIDERS: Supervising Provider Obstetrics & Gynecology; Visit Provider Obstetrics & Gynecology
DX: O09.293 Supervision of pregnancy with other poor reproductive or obstetric history, third trimester (principal); O34.219 Maternal care for unspecified type scar from previous cesarean delivery; Z3A.33 33 weeks gestation of pregnancy
CPT/HCPCS: 99214; G0463

== ENCOUNTER 2024-12-29 14:17 | Outpatient (AMB) | payer BC, SELFPAY ==
[2024-12-29 14:35] VITALS: BP 138/85; PULSE 93; RESP 18; TEMP 36.2; O2SAT 98; BMI 30.9
--- NOTE | 2024-12-29 14:35 | OBCLNT_ITS ---
Vital Signs 12/29/24 14:35 Height 1.57 m Height Method Stated Weight 76.317 kg Weight Measurement Method Standing Scale BMI 30.9 BP 138/85 H Blood Pressure Source Automatic Cuff Blood Pressure Location Left Upper Arm Position Sitting Respiration 18 Pulse 93 Pulse Source Monitor Temp 97.2 F Temp Source Oral Pulse Oximetry (%) 98 Oxygen Delivery Method Room Air Allergies/Home Meds Allergies & Medications Allergies No Known Allergies Allergy (Verified 12/29/24 14:36) Medication Reconciliation No Known Home Medications 09/14/24 [History Confirmed 12/29/24] Intake Visit Data Collection New Patient or Established: Established Patient (seen at [facility] within 3 years) Reason for Visit:: OBC Seen by Clinical Staff ONLY (RN/MA): No Chemical Packager Required: No Do You Feel Safe at Home: Yes Authorities Contacted: N/A PCP or OBGYN visit in last 3 months: Yes Date of Last PCP or OBGYN visit: 12/22/24 Hx Now: Yes Are you currently on any form of Control: No Pain Present Currently: No Pain Scale Used: Tom-Christy/Numerical Pain scale:: 0 Smoking Status Smoking Status: Never smoker Immunizations Flu Vaccine in the Last 12 Months: No Flu Vaccine Exclusion Criteria: Refused by Patient Questionnaires Covid-19 Vaccine Questionnaire Has patient been vacinated for Covid-19 Have you been vacinated for Covid-19: No PHQ-9 PHQ-2 Over the last 2 weeks, how often have you been bothered by any of the following problems? 1. Little interest or pleasure in doing things: not at all 2. Feeling down, depressed, or hopeless: not at all Total score: 0 PHQ-9 3. Trouble falling or staying asleep, or sleeping too much: Not at all 4. Feeling tired or having little energy: Not at all 5. Poor appetite or overeating: Not at all 6. Feeling bad about yourself - or that you are a failure or have let yourself or your family down: Not at all 7. Trouble concentrating on things, such as reading the newspaper or watching television: Not at all 8. Moving or speaking so slowly that other people could have noticed? - Or the opposite - being so fidgety or restless that you have been moving around a lot more than usual: not at all 9. Thoughts that you would be better off or of hurting yourself in some way: Not at all Total score: 0 If you checked off any problems, how difficult have these problems made it for you to do your work, take care of things at home, or get along with other people?: not difficult at all Source: Developed by Drs. Florian Rousseau, Maria L Sandoval, Aswhin Márquez and colleagues, with an educational lulu from [employer]. Depression screen completed yes Social History Living Situation History Lives With: Family Housing: House Housing Other:: Has a 2-year-old daughter is a police record specialist Tobacco History Smoking Status: Never smoker Second Hand Smoke Exposure: No Alcohol History Alcohol Intake: Never Domestic Abuse History Do You Feel Safe at Home: Yes Care OB Visit Log OB Flowsheet Initial Weight: Not Recorded Date -?-?-?-?-?-?-?-?-?-?-?-?- EGA Weight BP Alb Glu CTX Pres Fundal ht FHR Mov Dilation Station Effacement Hx Notes Visit Note 08/18/24 -?-?-?-?-?-?-?-?-?-?-?-?- 15w 5d 69.4 kg 125/71 137 absent No vaginal bleeding no contractions. Needs Keflex for an E. coli positive urine specimen. NIPT 46XX. Knows it is another girl. 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 Present with her mother 10/12/24 -?-?-?-?-?-?-?-?-?-?-?-?- 23w 4d 70.931 kg 127/79 24 127 active +FM No UCs o r LOF Will need GCT next visit 11/11/24 -?-?-?-?-?-?-?-?-?-?-?-?- 27w 6d 72.575 kg 125/80 absent 26 156 ac tive Good movement no contractions or loss of fluids O rdered glucose challenge test CBC and RPR at [facility] in [place] 11/30/24 -?-?-?-?-?-?-?-?-?-?-?-?- 30w 4d 73.709 kg 128/79 absent unknown 29 145 active Reports good movement. Denies contractions. Denies leaking, denies bleeding. Patient will do her 1 hour Glucola next week. Patient had questions about disability Sched ule with OB because of previous . Discussed labor precautions. Patient wanted to continue working. Continue prenatals. Patient will do her 1 hour Glucola next week. Return in 2 weeks OB check 12/29/24 -?-?-?-?-?-?-?-?-?-?-?-?- 34w 5d 76.317 kg 138/85 absent unknown 35 144 active - She reports increased fatigue and difficulty with walking compared to her previous . - States literally I'm just walking a nd I'm getting tired and it's so refreshing - Notes that this time I feel like li terally I'm just walking and I'm getting tired - She experiences pain related to her C- section scar stretching. 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 - She is considering when to start mater nity leave, initially planning to work until delivery but now reconsidering due to increased fatigue. - Baby remains active with no reported l eaking or other concerning symptoms. - She denies any leaking fluid. - Patient may discontinue work at 36 weeks gestation if desired - Patient to check with HR regarding [employer] availability and disability claim process - File disability claim online through [employer] website if choosing to go out on leave - Group B Strep culture to be performed at next visit (36-37 weeks) - Weekly appointments to contin ue - Next appointment scheduled for [place] EDD Calculator Estimated Delivery Date Method Current WG Current Estimate 02/04/25 Ultrasound #1 34w 5d Other Estimates 01/10/25 LMP (Uncertain) 38w 2d Expected Delivery Route/Plan Previous for elective repeat EDC 02/04/25 Specific Issue/Plans -0-0-1 x 1 for arrest of dilation labs are as follows:A+/antibody screen negative/ rubella immune/RPR nonreactive/HIV negative/hepatitis B surface antigen negative/hep C negative/NIPT 46XX/+100,000 E. coli sensitive to Keflex. Treated with Keflex. GC negative/chlamydia negative Notes Visit Date: 11/30/24 Last Updated by: Audra Truong CNM OB panel: A+,abs-, rpr;;nr, rub imm, hbsag-,hiv-,hc-, GC/CT-, NIPT/AFP- Visit Date: 11/11/24 Last Updated by: Kary Negron (OB Clinic)MD Patient is doing very well. We will plan a repeat around January 27. Due date 02/04/2025. Her daughter is going to get cochlear implants. She has a lot of doctors appointments coming up. The surgery is scheduled for 12/14/2024. Visit Date: 09/14/24 Last Updated by: Kary Negron (OB Clinic)MD Ordered SS CA imaging [place] Visit Date: 08/18/24 Last Updated by: Kary Negron (OB Clinic)MD Her first daughter is very hard of hearing and almost deaf. All workup for genetic disorders has been negative. Office Procedures OBC Clinic LOC & Office Proc's Nursing/Assessment Patient Status: Established Patient OB Clinic Nursing Assessment: Medication Reconciliation, Update PMH in EMR and Vital Signs OB Clinic Coordination of Care: Consent,records obtained, informed consent, Education Simp Pt/Fam, Lab and Imaging orders, Results/Orders obtained and Staff clarify orders Special Needs: Heart tones Established Patient Charge Established Patient Point Assignment: 110 Established Patient Point Charge: EP Level 3 (80-115) Assessment & Plan Diagnosis / Problem List (1) Encounter for supervision of high risk in third trimester, antepartum: Status: Acute (2) Previous section: Status: Acute Plan Problem List - at 34 weeks and 5 days gestation - History of section - Abdominal pain - Fatigue Assessment 34-week 5-day patient with history of prior section experiencing fatigue and pain attributed to scar stretching. Patient reports increased tiredness compared to previous , with discomfort during ambulation. heart rate is normal at 142-144 bpm. Patient denies rupture of membranes or leaking fluid. movement is active and appropriate. Plan - Patient may discontinue work at 36 weeks gestation if desired - Patient to check with HR regarding leave bank availability and disability claim process - File disability claim online through [employer] website if choosing to go out on leave - Group B Strep culture to be performed at next visit (36-37 weeks) - Weekly appointments to continue - Next appointment scheduled for 1. Progress Reviewed gestational age at 34 weeks and 5 days, growth, and heart rate of 142-144 bpm which is normal. Planned frequent visits with weekly zahraa ointments scheduled. 2. Instructed patient to monitor movements and report decreases immediately. 3. Testing Counseled on routine third-trimester labs per guidelines. Discussed Group B Strep culture scheduled for next visit at 36-37 weeks. 4. Preeclampsia Precaution Educated on preeclampsia signs: severe headache, vision changes, right upper quadrant pain, sudden swelling. Advised urgent reporting of symptoms and discussed blood pressure monitoring if high risk. 5. Labor Precautions Reviewed labor signs: regular contractions, pelvic pressure, back pain, bleeding, or fluid leakage. Instructed to seek immediate care for these symptoms. 6. Lifestyle and Delivery Preparation Reinforced vitamins, nutrition, and safe activity. Discussed work limitations due to fatigue and scar stretching pain. Advised patient to consider going on leave at 36 weeks given scheduled delivery. Counseled on disability claim process through [employer] website. 7. Psychosocial Support Assessed emotional well-being regarding work fatigue and physical discomfort. Provided guidance on leave options and disability benefits coordination with HR department.
== END 2024-12-29 14:56 | disposition home or self-care (01) ==
LOC: HODSOBC 14:17
PROVIDERS: Supervising Provider Obstetrics & Gynecology; Visit Provider Obstetrics & Gynecology
DX: O09.293 Supervision of pregnancy with other poor reproductive or obstetric history, third trimester (principal); O34.219 Maternal care for unspecified type scar from previous cesarean delivery; O09.893 Supervision of other high risk pregnancies, third trimester; O26.813 Pregnancy related exhaustion and fatigue, third trimester; Z3A.34 34 weeks gestation of pregnancy
CPT/HCPCS: 99213; G0463

== ENCOUNTER 2025-01-06 08:37 | Outpatient (AMB) | payer BC, SELFPAY ==
[2025-01-06 08:40] VITALS: BP 126/84; PULSE 90; RESP 18; TEMP 36.6; O2SAT 98; BMI 31.1
--- NOTE | 2025-01-06 08:40 | OBCLNT_ITS ---
Vital Signs 01/06/25 08:40 Height 1.57 m Height Method Stated Weight 76.714 kg Weight Measurement Method Standing Scale BMI 31.1 BP 126/84 Blood Pressure Source Automatic Cuff Blood Pressure Location Left Upper Arm Position Sitting Respiration 18 Pulse 90 Pulse Source Monitor Temp 97.9 F Temp Source Oral Pulse Oximetry (%) 98 Oxygen Delivery Method Room Air Allergies/Home Meds Allergies & Medications Allergies No Known Allergies Allergy (Verified 01/20/25 12:12) Medication Reconciliation vitamins no.102-iron 90 mg-folate 1 mg-dha 200 mg capsule 1 cap PO QDAY 01/20/25 [History Confirmed 01/20/25] Immunizations Immunizations Flu Vaccine in the Last 12 Months: Yes Date of most recent flu vaccination: 01/06/25 Flu Vaccine Exclusion Criteria: Already Received Care OB Visit Log OB Flowsheet Initial Weight: Not Recorded Date -?-?-?-?-?-?-?-?-?-?-?-?- EGA Weight BP Alb Glu CTX Pres Fundal ht FHR Mov Dilation Station Effacement Hx Notes Visit Note 08/18/24 -?-?-?-?-?-?-?-?-?-?-?-?- 15w 5d 69.4 kg 125/71 137 absent No vaginal bleeding no contractions. Needs Keflex for an E. coli positive urine specimen. NIPT 46XX. Knows it is another girl. 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 Present with her mother 10/12/24 -?-?-?-?-?-?-?-?-?-?-?-?- 23w 4d 70.931 kg 127/79 24 127 active +FM No UCs o r LOF Will need GCT next visit 11/11/24 -?-?-?-?-?-?-?-?-?-?-?-?- 27w 6d 72.575 kg 125/80 absent 26 156 ac tive Good movement no contractions or loss of fluids O rdered glucose challenge test CBC and RPR at [facility] in [place] 11/30/24 -?-?-?-?-?-?-?-?-?-?-?-?- 30w 4d 73.709 kg 128/79 absent unknown 29 145 active Reports good movement. Denies contractions. Denies leaking, denies bleeding. Patient will do her 1 hour Glucola next week. Patient had questions about disability Schedule with OB because of previous . Discussed labor precautions. Patient wanted to continue working. Continue prenatals. Patient will do her 1 hour Glucola next week. Return in 2 weeks OB check 12/29/24 -?-?-?-?-?-?-?-?-?-?-?-?- 34w 5d 76.317 kg 138/85 absent unknown 35 144 active - She reports increased fatigue and difficulty with walking compared to her previous . - States literally I'm just walking a nd I'm getting tired and it's so refreshing - Notes that this time I feel like li terally I'm just walking and I'm getting tired - She experiences pain related to her C- section scar stretching. 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 - She is considering when to start mater nity leave, initially planning to work until delivery but now reconsidering due to increased fatigue. - Baby remains active with no reported l eaking or other concerning symptoms. - She denies any leaking fluid. - Patient may discontinue work at 36 weeks gestation if desired - Patient to check with HR regarding [employer] availability and disability claim process - File disability claim online through [employer] website if choosing to go out on leave - Group B Strep culture to be performed at next visit (36-37 weeks) - Weekly appointments to contin ue - Next appointment scheduled for [place] 01/06/25 -?-?-?-?-?-?-?-?-?-?-?-?- 35w 6d 76.714 kg 126/84 absent cephalic 36 145 active - She reports possibly experiencing some contractions but describes them as breaths and not concerning. - She denies leaking fluid or bloody dis charge. - Patient reports baby is moving well. - She is currently still working and akanksha ns to continue working through next week to maintain holiday pay benefits. - Patient is requesting a work leave letter with a start date of . - Provide future-dated work leave letter starting January 16 - Include date on work leave d ocumentation - Follow-up appointment scheduled for ne xt Thursday morning - Continue current work schedule through next week to maintain holiday pay eligibility 01/11/25 -?-?-?-?-?-?-?-?-?-?-?-?- 36w 4d 78.018 kg 133/77 absent unknown 37 145 active - Zenaida Quarles is here for a appointment at 36 weeks and 5 days gestation with a scheduled section on January 30. - She reports feeling very tired. - She experiences intermittent contracti ons that come and go. - She denies persistent contractions las ting beyond 45 minutes. - She denies leaking fluid. - She is planning to start maternity leave on Thursday. - Scheduled section for January 30 at 7:30 AM - Patient to come to hospital if contrac tions persist beyond 45 minutes to 1 hour due to risk of uterine scar dehiscence from previous - Work leave note to be provided startin g Thursday - One follow-up appointment scheduled an y time before January 30 - GBS results pending - Patient advised to maintain hydration 01/20/25 -?-?-?-?-?-?-?-?-?-?-?-?- 37w 6d 79.095 kg 148/93 absent unknown 38 155 active - She is scheduled for repeat on January 30. - Patient reports elevated blood pressur e readings. - She denies headaches, epigastric pain, or vision spots for a couple of weeks. - Sleep has been poor, which she attribu berny as possibly causing her elevated blood pressure. - Baby remains active with normal heartbeat at 156. - Blood pressure recheck needed - If blood pressure below 130/80, no act ion required - If blood pressure above 130/80, pre-ec lampsia workup needed - Pre-eclampsia panel ordered (blood pre ssure rechecked at 150/92) - scheduled for January 30 SHIRA Calculator Estimated Delivery Date Method Current WG Current Estimate 02/04/25 Ultrasound #1 37w 6d Other Estimates 01/10/25 LMP (Uncertain) 41w 3d Expected Delivery Route/Plan Previous for elective repeat EDC 02/04/25 Specific Issue/Plans -0-0-1 x 1 for arrest of dilation labs are as follows:A+/antibody screen negative/ rubella immune/RPR nonreactive/HIV negative/hepatitis B surface antigen negative/hep C negative/NIPT 46XX/+100,000 E. coli sensitive to Keflex. Treated with Keflex. GC negative/chlamydia negative Notes Visit Date: 11/30/24 Last Updated by: Audra Truong CNM OB panel: A+,abs-, rpr;;nr, rub imm, hbsag-,hiv-,hc-, GC/CT-, NIPT/AFP- Visit Date: 11/11/24 Last Updated by: Kary Negron (OB Clinic)MD Patient is doing very well. We will plan a repeat around January 27. Due date 02/04/2025. Her daughter is going to get cochlear implants. She has a lot of doctors appointments coming up. The surgery is scheduled for 12/14/2024. Visit Date: 09/14/24 Last Updated by: Kary Negron (OB Clinic)MD Ordered SS CA imaging [place] Visit Date: 08/18/24 Last Updated by: Kary Negron (OB Clinic)MD Her first daughter is very hard of hearing and almost deaf. All workup for genetic disorders has been negative. Office Procedures OBC Clinic LOC & Office Proc's Nursing/Assessment Patient Status: Established Patient OB Clinic Nursing Assessment: Medication Reconciliation, Update PMH in EMR and Vital Signs OB Clinic Coordination of Care: Complex Care and Chronic Disease 1-5, Consent,records obtained, informed consent, Education Simp Pt/Fam, Lab and Imaging orders, Results/Orders obtained and Staff clarify orders Special Needs: Heart tones Miscellaneous Interventions: Culture Specimen Collection Established Patient Charge Established Patient Point Assignment: 150 Established Patient Point Charge: EP Level 4 (120-155) Injection/Vaccine Admin SQ Im Injection: Yes Immunizations flu vac ts 2024-(6mos up)-PF 45 mcg(15mcg x3)/0.5 mL IM syringe Performing Provider: Keegan Deal MD Performing Location: [facility] Administered by: Laury Vickers MA on 01/06/25 09:38 Dose Route Admin Location Dispensed Lot Number Expiration Date Pack age NDC NDC Prevocational/Rehabilitation Counselor 0.5 mL IM Right Deltoid 0.5 mL [id number] 08/15/25 [id number] [employer] VIS Given Date VIS Provided VIS Publication Date 01/06/25 Single Vaccine 24 Eligibility Eligibility Date Funding Source [facility] Assessment & Plan Diagnosis / Problem List (1) Gestational hypertension: Status: Acute (2) Previous section: Status: Acute Plan Assessment Patient reports possible contractions that she describes as breaths but they are not occurring at regular intervals closer than 5 minutes apart. heart rate is 150 bpm, which is within normal limits. Patient denies leaking fluid or bloody discharge. movement is present. Patient is currently working and plans to continue working until early January. Plan - Provide future-dated work leave letter starting January 16 - Include date on work leave documentation - Follow-up appointment scheduled for next Thursday morning - Continue current work schedule through next week to maintain holiday pay eligibility 1. Progress Reviewed gestational age, growth, and heart rate. Planned frequent visits (every 2 weeks until 36 weeks, then weekly). 2. Instructed patient to monitor movements and report decreases immediately. 3. Testing Counseled on routine third-trimester labs per guidelines. Discussed potential need for ultrasound or monitoring based on risk factors. 4. Preeclampsia Precaution Educated on preeclampsia signs: severe headache, vision changes, right upper quadrant pain, sudden swelling. Advised urgent reporting of symptoms and discussed blood pressure monitoring if high risk. 5. Labor Precautions Reviewed labor signs: regular contractions, pelvic pressure, back pain, bleeding, or fluid leakage. Instructed to seek immediate care for these symptoms. 6. Lifestyle and Delivery Preparation Reinforced vitamins, nutrition, and safe activity. Discussed plan, pain management, and . Advised on labor preparation (e.g., hospital bag) and expectations. 7. Psychosocial Support Assessed emotional well-being and offered resources for mental health or parenting support.
== END 2025-01-06 09:14 | disposition home or self-care (01) ==
PROVIDERS: Supervising Provider Obstetrics & Gynecology; Visit Provider Obstetrics & Gynecology
DX: O09.893 Supervision of other high risk pregnancies, third trimester (principal); O13.3 Gestational [pregnancy-induced] hypertension without significant proteinuria, third trimester; O09.293 Supervision of pregnancy with other poor reproductive or obstetric history, third trimester; O34.219 Maternal care for unspecified type scar from previous cesarean delivery; Z3A.35 35 weeks gestation of pregnancy; Z23 Encounter for immunization
CPT/HCPCS: 90471; 90686; 96372; 99214; G0463; J9060

== ENCOUNTER 2025-01-11 08:32 | Outpatient (AMB) | payer BC, SELFPAY ==
--- NOTE | 2025-01-11 08:46 | OBCLNT_ITS ---
Vital Signs 01/11/25 08:47 Height 1.57 m Height Method Stated Weight 78.018 kg Weight Measurement Method Standing Scale BMI 31.6 BP 133/77 H Blood Pressure Source Automatic Cuff Blood Pressure Location Left Upper Arm Position Sitting Respiration 18 Pulse 86 Pulse Source Monitor Temp 98.2 F Temp Source Oral Pulse Oximetry (%) 98 Oxygen Delivery Method Room Air Allergies/Home Meds Allergies & Medications Allergies No Known Allergies Allergy (Verified 01/11/25 08:47) Medication Reconciliation No Known Home Medications 09/14/24 [History Confirmed 01/11/25] Immunizations Immunizations Flu Vaccine in the Last 12 Months: Yes Flu Vaccine Exclusion Criteria: Already Received Care OB Visit Log OB Flowsheet Initial Weight: Not Recorded Date -?-?-?-?-?-?-?-?-?-?-?-?- EGA Weight BP Alb Glu CTX Pres Fundal ht FHR Mov Dilation Station Effacement Hx Notes Visit Note 08/18/24 -?-?-?-?-?-?-?-?-?-?-?-?- 15w 5d 69.4 kg 125/71 137 absent No vaginal bleeding no contractions. Needs Keflex for an E. coli positive urine specimen. NIPT 46XX. Knows it is another girl. 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 Present with her mother 10/12/24 -?--?-?-?-?-?-?-?-?-?-?-?- 23w 4d 70.931 kg 127/79 24 127 active +FM No UCs o r LOF Will need GCT next visit 11/11/24 -?-?-?-?-?-?-?-?-?-?-?-?- 27w 6d 72.575 kg 125/80 absent 26 156 ac tive Good movement no contractions or loss of fluids O rdered glucose challenge test CBC and RPR at [facility] in [place] 11/30/24 -?-?-?-?-?-?-?-?-?-?-?-?- 30w 4d 73.709 kg 128/79 absent unknown 29 145 active Reports good movement. Denies contractions. Denies leaking, denies bleeding. Patient will do her 1 hour Glucola next week. Patient had questions about disability Schedule with OB because of previous . Discussed labor precautions. Patient wanted to continue working. Continue prenatals. Patient will do her 1 hour Glucola next week. Return in 2 weeks OB check 12/29/24 -?-?-?-?-?-?-?-?-?-?-?-?- 34w 5d 76.317 kg 138/85 absent unknown 35 144 active - She reports increased fatigue and difficulty with walking compared to her previous . - States literally I'm just walking a nd I'm getting tired and it's so refreshing - Notes that this time I feel like li terally I'm just walking and I'm getting tired - She experiences pain related to her C- section scar stretching. 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 - She is considering when to start mater nity leave, initially planning to work until delivery but now reconsidering due to increased fatigue. - Baby remains active with no reported l eaking or other concerning symptoms. - She denies any leaking fluid. - Patient may discontinue work at 36 weeks gest ation if desired - Patient to check with HR regarding [employer] availability and disability claim process - File disability claim online through [employer] website if choosing to go out on leave - Group B Strep culture to be performed at next visit (36-37 weeks) - Weekly appointments to contin ue - Next appointment scheduled for Guy y 01/11/25 -?-?-?-?-?-?-?-?-?-?-?-?- 36w 4d 78.018 kg 133/77 absent unknown 37 145 active - Zenaida Quarles is here for a appointment at 36 weeks and 5 days gestation with a scheduled section on January 30. - She reports feeling very tired. - She experiences intermittent contracti ons that come and go. - She denies persistent contractions las ting beyond 45 minutes. - She denies leaking fluid. - She is planning to start maternity leave on Thursday. - Scheduled section for January 30 at 7:30 AM - Patient to come to hospital if contrac tions persist beyond 45 minutes to 1 hour due to risk of uterine scar dehiscence from previous - Work leave note to be provided letiin g Thursday - One follow-up appointment scheduled an y time before January 30 - GBS results pending - Patient advised to maintain hydration SHIRA Calculator Estimated Delivery Date Method Current WG Current Estimate 02/04/25 Ultrasound #1 36w 6d Other Estimates 01/10/25 LMP (Uncertain) 40w 3d Expected Delivery Route/Plan Previous for elective repeat EDC 02/04/25 Specific Issue/Plans -0-0-1 x 1 for arrest of dilation labs are as follows:A+/antibody screen negative/ rubella immune/RPR nonreactive/HIV negative/hepatitis B surface antigen negative/hep C negative/NIPT 46XX/+100,000 E. coli sensitive to Keflex. Treated with Keflex. GC negative/chlamydia negative Notes Visit Date: 11/30/24 Last Updated by: Audra Truong CNM OB panel: A+,abs-, rpr;;nr, rub imm, hbsag-,hiv-,hc-, GC/CT-, NIPT/AFP- Visit Date: 11/11/24 Last Updated by: Kary Negron (OB Clinic)MD Patient is doing very well. We will plan a repeat around January 27. Due date 02/04/2025. Her daughter is going to get cochlear implants. She has a lot of doctors appointments coming up. The surgery is scheduled for 12/14/2024. Visit Date: 09/14/24 Last Updated by: Kary Negron (OB Clinic)MD Ordered SS CA imaging [place] Visit Date: 08/18/24 Last Updated by: Kary Negron (OB Clinic)MD Her first daughter is very hard of hearing and almost deaf. All workup for genetic disorders has been negative. Office Procedures OBC Clinic LOC & Office Proc's Nursing/Assessment Patient Status: Established Patient OB Clinic Nursing Assessment: Medication Reconciliation, Update PMH in EMR and Vital Signs OB Clinic Coordination of Care: Consent,records obtained, informed consent, Education Simp Pt/Fam, Lab and Imaging orders, Results/Orders obtained and Staff clarify orders Special Needs: Heart tones Established Patient Charge Established Patient Point Assignment: 110 Established Patient Point Charge: EP Level 3 (80-115) Assessment & Plan Diagnosis / Problem List (1) Encounter for supervision of high risk in third trimester, antepartum: Status: Acute (2) Previous section: Status: Acute Plan Problem List - at 36 weeks and 5 days gestation - History of section - Fatigue Assessment 36-week 5-day patient with history of previous section presenting with intermittent contractions that come and go. Patient reports fatigue. heart rate is 165 bpm, which is within normal limits. GBS results are pending. Patient has scheduled section planned for January 30. Plan - Scheduled section for January 30 at 7:30 AM - Patient to come to hospital if contractions persist beyond 45 minutes to 1 hour due to risk of uterine scar dehiscence from previous - Work leave note to be provided starting Thursday - One follow-up appointment scheduled any time before January 30 - GBS results pending - Patient advised to maintain hydration 1. Progress Reviewed gestational age at 36 weeks and 5 days, growth, and heart rate at 165 bpm which is normal. Patient scheduled for on January 30 at 7:30 AM with one appointment planned before that date. 2. Instructed patient to monitor movements and report decreases immediately. 3. Testing GBS testing was completed with results pending. Discussed potential need for ultrasound or monitoring based on risk factors. 4. Preeclampsia Precaution Educated on preeclampsia signs: severe headache, vision changes, right upper quadrant pain, sudden swelling. Advised urgent reporting of symptoms and discussed blood pressure monitoring if high risk. 5. Labor Precautions Reviewed labor signs including contractions. Patient counseled that intermittent contractions are acceptable, but persistent contractions lasting beyond 45 minutes to 1 hour require immediate hospital evaluation due to risk of uterine scar dehiscence from previous . Advised that contractions often occur when tired and emphasized importance of hydration by carrying water bottle. 6. Lifestyle and Delivery Preparation Emphasized importance of hydration and rest. Discussed scheduled delivery plan for January 30. Provided work leave documentation starting Thursday. 7. Psychosocial Support Patient reported feeling very tired. Assessed work situation and provided appropriate documentation for maternity leave beginning Thursday.
[2025-01-11 08:47] VITALS: BP 133/77; PULSE 86; RESP 18; TEMP 36.8; O2SAT 98; BMI 31.6
== END 2025-01-11 09:10 | disposition home or self-care (01) ==
LOC: HODSOBC 08:32
PROVIDERS: Supervising Provider Obstetrics & Gynecology; Visit Provider Obstetrics & Gynecology
DX: O09.293 Supervision of pregnancy with other poor reproductive or obstetric history, third trimester (principal); O34.219 Maternal care for unspecified type scar from previous cesarean delivery; Z3A.36 36 weeks gestation of pregnancy
CPT/HCPCS: 99213; G0463

== ENCOUNTER 2025-01-20 10:50 | Outpatient (AMB) | payer BC, SELFPAY ==
[2025-01-20 11:03] VITALS: BP 148/93; PULSE 98; RESP 18; TEMP 36.6; O2SAT 98; BMI 32.1
--- NOTE | 2025-01-20 11:03 | OBCLNT_ITS ---
Vital Signs 01/20/25 11:03 Height 1.57 m Height Method Stated Weight 79.095 kg Weight Measurement Method Standing Scale BMI 32.1 BP 148/93 H Blood Pressure Source Automatic Cuff Blood Pressure Location Left Upper Arm Position Sitting Respiration 18 Pulse 98 Pulse Source Monitor Temp 97.8 F Temp Source Oral Pulse Oximetry (%) 98 Oxygen Delivery Method Room Air Allergies/Home Meds Allergies & Medications Allergies No Known Allergies Allergy (Verified 01/20/25 12:12) Medication Reconciliation vitamins no.102-iron 90 mg-folate 1 mg-dha 200 mg capsule 1 cap PO QDAY 01/20/25 [History Confirmed 01/20/25] Immunizations Immunizations Flu Vaccine in the Last 12 Months: Yes Flu Vaccine Exclusion Criteria: No Exclusion Criteria and Already Received Care OB Visit Log OB Flowsheet Initial Weight: Not Recorded Date -?-?-?-?-?-?-?-?-?-?-?-?- EGA Weight BP Alb Glu CTX Pres Fundal ht FHR Mov Dilation Station Effacement Hx Notes Visit Note 08/18/24 -?-?-?-?-?-?-?-?-?-?-?-?- 15w 5d 69.4 kg 125/71 137 absent No vaginal bleeding no contractions. Needs Keflex for an E. coli positive urine specimen. NIPT 46XX. Knows it is another girl. 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 Present with her mother 10/12/24 -?-?-?-?-?-?-?-?-?-?-?-?- 23w 4d 70.931 kg 127/79 24 127 active +FM No UCs o r LOF Will need GCT next visit 11/11/24 -?-?-?-?-?-?-?-?-?-?-?-?- 27w 6d 72.575 kg 125/80 absent 26 156 ac tive Good movement no contractions or loss of fluids O rdered glucose challenge test CBC and RPR at [facility] in [place] 11/30/24 -?-?-?-?-?-?-?-?-?-?-?-?- 30w 4d 73.709 kg 128/79 absent unknown 29 145 active Reports good movement. Denies contractions. Denies leaking, denies bleeding. Patient will do her 1 hour Glucola next week. Patient had questions about disability Schedule with OB because of previous . Discussed labor precautions. Patient wanted to continue working. Continue prenatals. Patient will do her 1 hour Glucola next week. Return in 2 weeks OB check 12/29/24 -?-?-?-?-?-?-?-?-?-?-?-?- 34w 5d 76.317 kg 138/85 absent unknown 35 144 active - She reports increased fatigue and difficulty with walking compared to her previous . - States literally I'm just walking a nd I'm getting tired and it's so refreshing - Notes that this time I feel like li terally I'm just walking and I'm getting tired - She experiences pain related to her C- section scar stretching. 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 - She is considering when to start mater nity leave, initially planning to work until delivery but now reconsidering due to increased fatigue. - Baby remains active with no reported l eaking or other concerning symptoms. - She denies any leaking fluid. - Patient may discontinue work at 36 weeks gestation if desired - Patient to check with HR regarding [employer] availability and disability claim process - File disability claim online through [employer] website if choosing to go out on leave - Group B Strep culture to be performed at next visit (36-37 weeks) - Weekly appointments to contin ue - Next appointment scheduled for [facility] 01/11/25 -?-?-?-?-?-?-?-?-?-?-?-?- 36w 4d 78.018 kg 133/77 absent unknown 37 145 active - Zenaida Quarles is here for a appointment at 36 weeks and 5 days gestation with a scheduled section on January 30. - She reports feeling very tired. - She experiences intermittent contracti ons that come and go. - She denies persistent contractions las ting beyond 45 minutes. - She denies leaking fluid. - She is planning to start maternity leave on Thursday. - Scheduled section for January 30 at 7:30 AM - Patient to come to hospital if contrac tions persist beyond 45 minutes to 1 hour due to risk of uterine scar dehiscence from previous - Work leave note to be provided startin g Thursday - One follow-up appointment scheduled an y time before January 30 - GBS results pending - Patient advised to maintain hydration 01/20/25 -?-?-?-?-?-?-?-?-?-?-?-?- 37w 6d 79.095 kg 148/93 absent unknown 38 155 active - She is scheduled for repeat on January 30. - Patient reports elevated blood pressur e readings. - She denies headaches, epigastric pain, or vision spots for a couple of weeks. - Sleep has been poor, which she attribu berny as possibly causing her elevated blood pressure. - Baby remains active with normal heartbeat at 156. - Blood pressure recheck needed - If blood pressure below 130/80, no act ion required - If blood pressure above 130/80, pre-ec lampsia workup needed - Pre-eclampsia panel ordered (blood pre ssure rechecked at 150/92) - scheduled for January 30 SHIRA Calculator Estimated Delivery Date Method Current WG Current Estimate 02/04/25 Ultrasound #1 37w 6d Other Estimates 01/10/25 LMP (Uncertain) 41w 3d Expected Delivery Route/Plan Previous for elective repeat EDC 02/04/25 Specific Issue/Plans -0-0-1 x 1 for arrest of dilation labs are as follows:A+/antibody screen negative/ rubella immune/RPR nonreactive/HIV negative/hepatitis B surface antigen negative/hep C negative/NIPT 46XX/+100,000 E. coli sensitive to Keflex. Treated with Keflex. GC negative/chlamydia negative Notes Visit Date: 11/30/24 Last Updated by: Audra Truong CNM OB panel: A+,abs-, rpr;;nr, rub imm, hbsag-,hiv-,hc-, GC/CT-, NIPT/AFP- Visit Date: 11/11/24 Last Updated by: Kary Negron (OB Clinic)MD Patient is doing very well. We will plan a repeat around January 27. Due date 02/04/2025. Her daughter is going to get cochlear implants. She has a lot of doctors appointments coming up. The surgery is s cheduled for 12/14/2024. Visit Date: 09/14/24 Last Updated by: Kary Negron (OB Clinic)MD Ordered SS CA imaging [place] Visit Date: 08/18/24 Last Updated by: Kary Negron ([facility] Clinic)MD Her first daughter is very hard of hearing and almost deaf. All workup for genetic disorders has been negative. Office Procedures [facility] LOC & Office Proc's Nursing/Assessment Patient Status: Established Patient OB Clinic Nursing Assessment: Medication Reconciliation, Update PMH in EMR and Vital Signs OB Clinic Coordination of Care: Consent,records obtained, informed consent, Education Simp Pt/Fam, Lab and Imaging orders, Results/Orders obtained and Staff clarify orders Special Needs: Heart tones Established Patient Charge Established Patient Point Assignment: 110 Established Patient Point Charge: EP Level 3 (80-115) Assessment & Plan Diagnosis / Problem List (1) Encounter for supervision of high risk in third trimester, antepartum: Status: Acute (2) Gestational hypertension: Status: Acute Plan Problem List - Hypertension in - at 37 weeks 6 days gestation - History of delivery - Group B Streptococcus colonization screening Assessment 37-week 6-day patient with elevated blood pressure readings of 148/93, 150/100, and 148/91, requiring pre-eclampsia workup given persistently elevated values above 130/80 threshold. Patient denies headaches, epigastric pain, or visual disturbances over the past couple of weeks. heart rate is reassuring at 156 bpm with reported activity. Group B streptococcus culture is negative. Patient reports poor sleep quality which may be contributing to elevated blood pressure readings. Plan - Blood pressure recheck needed - If blood pressure below 130/80, no action required - If blood pressure above 130/80, pre-eclampsia workup needed - Pre-eclampsia panel ordered (blood pressure rechecked at 150/92) - scheduled for January 30. Progress Reviewed gestational age, growth, and heart rate. Planned frequent visits (every 2 weeks until 36 weeks, then weekly). 2. Instructed patient to monitor movements and report decreases immediately. 3. Testing Counseled on routine third-trimester labs per guidelines. Discussed potential need for ultrasound or monitoring based on risk factors. 4. Preeclampsia Precaution Educated on preeclampsia signs: severe headache, vision changes, right upper quadrant pain, sudden swelling. Advised urgent reporting of symptoms and discussed blood pressure monitoring if high risk. 5. Labor Precautions Reviewed labor signs: regular contractions, pelvic pressure, back pain, bleeding, or fluid leakage. Instructed to seek immediate care for these symptoms. 6. Lifestyle and Delivery Preparation Reinforced vitamins, nutrition, and safe activity. Discussed plan, pain management, and . Advised on labor preparation (e.g., hospital bag) and expectations. 7. Psychosocial Support Assessed emotional well-being and offered resources for mental health or parenting support.
== END 2025-01-20 11:25 | disposition home or self-care (01) ==
LOC: HODSOBC 10:50
PROVIDERS: Supervising Provider Obstetrics & Gynecology; Visit Provider Obstetrics & Gynecology
DX: O09.893 Supervision of other high risk pregnancies, third trimester (principal); O13.3 Gestational [pregnancy-induced] hypertension without significant proteinuria, third trimester; O09.293 Supervision of pregnancy with other poor reproductive or obstetric history, third trimester; O34.219 Maternal care for unspecified type scar from previous cesarean delivery; Z3A.37 37 weeks gestation of pregnancy
CPT/HCPCS: 99213; G0463

== ENCOUNTER 2025-01-20 13:20 | Inpatient (IN) | payer BC, SELFPAY ==
[2025-01-20] VITALS (43 sets, daily range): BP systolic 0–165; BP diastolic 0–102; PULSE 66–108; RESP 16–99; TEMP 36.6–36.9; O2SAT 92–100; BMI 31.9
[2025-01-20 12:09] LABS: Collection Type, Urine Clean Catch
[2025-01-20 12:16] LABS: Basophils # (Auto) 0.0 Thou/mm3 (0.0-0.2); Basophils % (Auto) 0 % (0-2.5); Eosinophils # (Auto) 0.1 Thou/mm3 (0.0-0.5); Eosinophils % (Auto) 1 % (0-10); Hematocrit 34.4 % (36.0-46.0); Hemoglobin 11.5 g/dL (12.0-16.0); Immature Granulocytes Auto 0.06 Thou/mm3 (0.00-0.00); Lymphocytes # (Auto) 2.2 Thou/mm3 (1.0-4.8); Lymphocytes % (Auto) 24 % (10-50); Mean Corpuscular HGB Conc 33.4 g/dl (31.0-37.0); Mean Corpuscular Hemoglobin 27.2 pg (25.0-35.0); Mean Corpuscular Volume 81 fL (80-100); Monocytes # (Auto) 0.7 Thou/mm3 (0.0-0.8); Monocytes % (Auto) 7 % (0-12); Neutrophils # (Auto) 6.3 Thou/mm3 (1.8-7.7); Neutrophils % (Auto) 68 % (37-80); Nucleated Red Blood Cell # 0.00 Thou/mm3 (0.00-0.00); Nucleated Red Blood Cell % 0 /100 WBC (0); Platelet Count 311 Thou/mm3 (140-440); RDW Standard Deviation 38.1 fL (36.4-46.3); Red Blood Count 4.23 Miln/mm3 (4.00-5.20); White Blood Count 9.3 Thou/mm3 (3.6-11.0)
[2025-01-20 12:20] LABS: Bacteria,Urine 4+; Bilirubin,Urine Negative (Negative); Blood,Urine Negative (Negative); Color,Urine Yellow (Lt Yel-Yel); Glucose, Urine Negative (Negative); Ketones,Urine Negative (Negative); Leukocyte Esterase,Urine Positive (Negative); Nitrite,Urine Positive (Negative); PH,Urine 6.5 (5.0-7.0); Protein,Urine Negative (Neg - Trace); RBC,Urine 4 /hpf (0-3); Specific Gravity,Urine 1.020 (1.001-1.035); Squamous Epithelial Cell,Urine 21 /hpf (0-5); Urobilinogen,Urine Negative mg/dL (0.0-1.0); WBC,Urine 15 /hpf (0-5)
[2025-01-20 12:24] LABS: Creatinine,Random Urine 92 mg/dL (30-125); Protein Total, Random Urine 20 mg/dL (1-14)
[2025-01-20 12:32] LABS: Clarity,Urine Hazy (Clear/Hazy)
[2025-01-20 12:38] LABS: Fibrinogen 525 mg/dL (175-375); INR 0.9 (0.9-1.3); Partial Thromboplastin Time 25.4 Seconds (22.0-36.0); Prothrombin Time 9.7 Seconds (9.0-12.2)
[2025-01-20 12:51] LABS: Alanine Aminotransferase < 7 U/L (10-49); Albumin, Serum 3.9 gm/dL (3.5-5.0); Albumin/Globulin Ratio 1.3 (1.2-2.2); Alkaline Phosphatase 126 U/L (46-116); Anion Gap 12 (7-16); Aspartate Amino Transferase 17 U/L (0-34); BUN/Creatinine Ratio 10 Ratio (12-20); Bilirubin,Total 0.3 mg/dL (0.3-1.2); Blood Urea Nitrogen 6 mg/dL (9-23); Calcium 8.7 mg/dL (8.3-10.6); Calcium (Corrected) 8.8 mg/dL (8.5-10.1); Carbon Dioxide 18.6 mMol/L (20.0-31.0); Chloride 109 mMol/L (98-107); Creatinine (Component) 0.6 mg/dL (0.6-1.3); Estimated Creatinine Clearance 135.0 mL/min (>60); Globulin 3.0 gm/dL (2.3-3.5); Glucose 127 mg/dL (74-106); LDH (Lactate Dehydrogenase) 190 U/L (120-246); Osmolality,Calculated 279 (275-295); Potassium 4.0 mMol/L (3.4-5.1); Sodium 140 mMol/L (136-145); Total Protein 6.9 gm/dL (5.7-8.2); Uric Acid 3.9 mg/dL (3.1-7.8); eGFR > 60 See Note
[2025-01-20 14:31] LABS: Syphilis Nonreactive (Nonreactive)
--- NOTE | 2025-01-20 15:00 | PD.LDHP ---
Documentation for date of: 01/20/25 OB Labor/Induct. HPI History of Present Illness Chief complaint: New onset hypertension : 2 Para: 1 Term pregnancies: 1 pregnancies: 0 Living children: 1 History of Abortions: Spontaneous and Elective: 0 History of Vaginal deliveries: 0 History of sections: Yes (2022) History of : No SHIRA: 02/03/25 Gestational Age (weeks): 37 Gestational Age (days): 6 History of present illness: Patient is a 29-year-old 2 para 1-0-0-1 at 37 weeks and 6 days with estimated due date of 02/04/2025 with history of previous who presented to the office where she was noted to have new onset hypertension. Patient has been reporting some floaters in her visual field but she denies any headache she denies any epigastric or right upper quadrant pain or any other associated complaints. Patient denies any contractions or leakage of fluid or vaginal bleeding. History of Present Adequate Care: Yes Labs Labs: Positive: Rubella Titre, Negative: RPR, Hepatitis B, HIV, Chlamydia, Gonorrhea and Group Beta Strep and Unknown: Herpes Type 1, Herpes Type 2 and Covid-19 Review of Systems Review of Systems Systems Reviewed: All systems reviewed, normal except as documented Past Medical History Surgical History SURGICAL: Positive Section (2022) Meds Home Medications and Allergies Home Medications ?Medication ?Instructions ?Recorded ?Confirmed ?Type vitamins no.102-iron 90 1 cap PO QDAY 01/20/25 01/20/25 History mg-folate 1 mg-dha 200 mg capsule Allergies Allergy/AdvReac Type Severity Reaction Status Date / Time No Known Allergies Allergy Verified 01/20/25 12:12 OB Exam Physical Exam Vital signs: Temp Pulse Resp BP Pulse Ox 98.4 F 88 16 121/73 98 01/20/25 11:50 01/20/25 14:32 01/20/25 11:50 01/20/25 14:32 01/20/25 12:13 Constitutional Constitutional: no acute distress Routine HEENT Exam Head: Present normocephalic and atraumatic Eye: Present EOMI and PERRL ENT: Present mucous membranes moist Routine Neck Exam Neck: Present supple and trachea midline Routine Cardiovascular Exam Cardiovascular: Present RRR Routine Abdominal Exam Abdominal: Present soft and normoactive bowel sounds Detailed Labor and Delivery Exam Dilation (cm): 0 Baseline heart rate: 145 monitor accelerations: 15x15 monitor decelerations: None retirement variability: Average (6-10) Routine Extremities Exam Extremities: Present full ROM Routine Skin Exam Skin: Present intact, dry and warm Routine Neurological Exam Neurological: Present alert, oriented X3 and CN II-XII intact Routine Psychiatric Exam Psychiatric: Present normal affect and normal thought process OB Results Labs 01/20/25 11:55 01/20/25 11:55 Labs: Short CBC 01/20/25 Range/Units 11:55 WBC 9.3 (3.6-11.0) Thou/mm3 Hgb 11.5 L (12.0-16.0) g/dL Hct 34.4 L (36.0-46.0) % Plt Count 311 (140-440) Thou/mm3 BMP 01/20/25 11:55 Sodium 140 Potassium 4.0 Chloride 109 H Carbon Dioxide 18.6 L BUN 6 L Creatinine 0.6 Glucose 127 H Calcium 8.7 Liver Function 01/20/25 Range/Units 11:55 Total Bilirubin 0.3 (0.3-1.2) mg/dL AST 17 (0-34) U/L ALT < 7 L (10-49) U/L Alkaline Phosphatase 126 H (46-116) U/L Albumin 3.9 (3.5-5.0) gm/dL Urine 01/20/25 Range/Units 11:40 Urine Color Yellow (Lt Yel-Yel) Urine Clarity Hazy (Clear/Hazy) Urine pH 6.5 (5.0-7.0) Ur Specific [place] 1.020 (1.001-1.035) Urine Protein Negative (Neg - Trace) Urine Glucose (UA) Negative (Negative) OB Assessment & Plan Assessment and Plan (1) Gestational hypertension: Status: Acute (2) Encounter for supervision of high risk in third trimester, antepartum: Status: Acute (3) Previous section: Status: Acute Assessment and plan: Admit to inpatient status for repeat low transverse due to new onset hypertension IV access, CBC, type and screen, LR at 125, RPR, COVID-19 test, preeclampsia panel GBS negative Ancef 2 g prior to surgery start Harris catheter to drainage SCDs for DVT prophylaxis Anesthesia to preop for spinal anesthesia Scheduled for surgery.
[2025-01-20] MEDS: CITRIC ACID/SODIUM CITR 15 ML UDC (BICITRA) 30 ML PO (20:27)
[2025-01-20] MEDS: FAMOTIDINE INJ 10 MG/ML VIAL 2 ML 20 MG IV (20:28)
[2025-01-20] MEDS: ceFAZolin/D5W 2 GM IV 2 GM/100 ML BAG IV (20:29)
--- NOTE | 2025-01-20 21:16 | ESOP_ITS ---
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 Identity was confirmed by double identifiers and she was placed on the operating table. Spinal anesthesia was administered and she was positioned in the supine position. The abdomen and perineum were prepped in the usual sterile fashion and a Harris catheter was placed to continuous drainage. Sterile drapes were applied. The incision site was tested for adequacy of anesthesia. A Pfannenstiel skin incision was made with a scalpel and carried to the subcutaneous fat up to the rectus fascia. The rectus fascia was incised on either side of the midline and the incisions were extended bilaterally. The fascia was gently dissected off the ventral surface of the rectus muscle both superiorly and inferiorly. The rectus bellies were gently in the midline and the peritoneum was identified and entered bluntly using the surgeon's finger. The peritoneal opening was now stretched to create an adequate opening for access to the uterus. Mario O-ring retractor was placed for adequate visualization. The anterior surface of the uterus was palpated. The bladder reflection was identified and a [place] low transverse uterine incision was made in the lower uterine segment taking care to avoid the bladder. Uterine entry was accomplished bluntly and the opening was stretched to create adequate room. The amniotic membranes were now ruptured and clear amniotic fluid was released. The fetus was noted to be in the vertex position. The head was gently elevated out of the maternal pelvis and the rest of the shoulders and body were delivered by gentle fundal pressure. Umbilical cord was doubly clamped, divided and the infant was handed over to the waiting team. Cord gas samples were obtained. The placenta was delivered by gentle traction on the umbilical cord. The interior of the uterus was now thoroughly cleaned of all blood and debris and membranes. The hysterotomy angles were grasped by a pair of Allis clamps and the hysterotomy was closed using 1 Monocryl suture in 2 layers. The first layer was used to approximate the muscle in a running locked fashion, the second layer was used to approximate the thickness of the myometrium and uterine serosa in an imbricated manner. Once the repair was completed the hysterotomy was inspected and noted to be adequately hemostatic. The hysterotomy was once again inspected and hemostasis was noted to be satisfactory. The Mario retractor was now removed. The peritoneal edges were re approximated. The rectus muscles were re approximated. The rectus fascia was now repaired using 0 Vicryl suture in a running fashion. The subcutaneous layer was now copiously irrigated using warm normal saline. All bleeding points were cauterized using the Bovie. The subcutaneous fat was closed using 2 0 STRATAFIX the skin was closed using INSORB in a subcuticular fashion. The skin was cleaned and a sterile dressing was applied. The patient was now undraped, the abdomen and back were thoroughly cleaned and she was transferred to the recovery room in a stable and awake condition. The patient tolerated the entire procedure well. No complications were encountered. All instrument, sponge and lap counts were correct x2. Estimated blood loss (ml): 600 Complications: none Surgical staff Operation Date: 01/20/25 19:45 <No data on this case meets the specified criteria> Diagnosis Discharge Diagnosis (1) Gestational hypertension: Status: Acute (2) Encounter for supervision of high risk in third trimester, antepartum: Status: Acute (3) Previous section: Status: Acute Problem List Completed Was Problem List Reviewed/Reconciled?: Yes
--- NOTE | 2025-01-20 21:18 | PD.LDDELS ---
Data ([place]) Data Hx Section: Yes (2022) : 2 Term: 1 : 0 Livin Abortions: Spontaneous & Theraputic: 0 Delivery Data ([facility]) Delivery Data Delivered by: nicole Anesthesia Type Anesthesia type: Spinal
[2025-01-20] MEDS: LABETALOL 100 MG TABLET 200 MG PO (22:36)
[2025-01-21] MEDS: OXYTOCIN in NS 20 units 20 UNIT/1,000 ML BAG 125 UNIT IV (01:26)
[2025-01-21 03:40] VITALS: BP 114/65; PULSE 82; RESP 18; TEMP 36.7; O2SAT 98
[2025-01-21 05:39] LABS: Basophils # (Auto) 0.0 Thou/mm3 (0.0-0.2); Basophils % (Auto) 0 % (0-2.5); Eosinophils # (Auto) 0.0 Thou/mm3 (0.0-0.5); Eosinophils % (Auto) 0 % (0-10); Hematocrit 31.6 % (36.0-46.0); Hemoglobin 10.5 g/dL (12.0-16.0); Immature Granulocytes Auto 0.09 Thou/mm3 (0.00-0.00); Lymphocytes # (Auto) 1.1 Thou/mm3 (1.0-4.8); Lymphocytes % (Auto) 7 % (10-50); Mean Corpuscular HGB Conc 33.2 g/dl (31.0-37.0); Mean Corpuscular Hemoglobin 27.2 pg (25.0-35.0); Mean Corpuscular Volume 82 fL (80-100); Monocytes # (Auto) 0.2 Thou/mm3 (0.0-0.8); Monocytes % (Auto) 1 % (0-12); Neutrophils # (Auto) 14.6 Thou/mm3 (1.8-7.7); Neutrophils % (Auto) 91 % (37-80); Nucleated Red Blood Cell # 0.00 Thou/mm3 (0.00-0.00); Nucleated Red Blood Cell % 0 /100 WBC (0); Platelet Count 325 Thou/mm3 (140-440); RDW Standard Deviation 38.0 fL (36.4-46.3); Red Blood Count 3.86 Miln/mm3 (4.00-5.20); White Blood Count 16.0 Thou/mm3 (3.6-11.0)
[2025-01-21 08:16] VITALS: BP 119/67; PULSE 91; RESP 16; TEMP 36.7; O2SAT 99
--- NOTE | 2025-01-21 09:11 | PD.LDPPPRG ---
Subjective Subjective Interval history: Patient has no/ complaints Headache no Blurry vision no Chest pain no Palpitations no Shortness of breath no Nausea or vomiting or constipation no Back pain no Dysuria no Dizziness no calf pain no She still has catheter Passing flatus yes Lochia minimal yes Exam Vital Signs Temp Pulse Resp BP Pulse Ox O2 Del Method 98.1 F 82 18 114/65 98 Room Air 01/21/25 03:40 01/21/25 03:40 01/21/25 03:40 01/21/25 03:40 01/21/25 03:40 01/21/25 03:40 Narrative Exam alert x3 chest clear CVS RRR NO thyromegaly Uterus is nontender Uterus is firm/ appropriate size Just below the umbilicus Bowel sounds present Abdomen soft no hernias noted/no CVAT Incision CDI No drainage Appropriately tender No calf tenderness Edema mild Objective Labs 01/21/25 04:15 01/20/25 11:55 Labs: Laboratory Results - last 24 hr 01/20/25 01/20/25 01/21/25 11:40 11:55 04:15 WBC 9.3 16.0 H D RBC 4.23 3.86 L Hgb 11.5 L 10.5 L Hct 34.4 L 31.6 L MCV 81 82 MCH 27.2 27.2 MCHC 33.4 33.2 RDW Std Deviation 38.1 38.0 Plt Count 311 325 Neut % (Auto) 68 91 H Lymph % (Auto) 24 7 L [place] % (Auto) 7 1 Eos % (Auto) 1 0 Baso % (Auto) 0 0 Neut # (Auto) 6.3 14.6 H Lymph # (Auto) 2.2 1.1 [place] # (Auto) 0.7 0.2 Eos # (Auto) 0.1 0.0 Baso # (Auto) 0.0 0.0 Immature Gran # (Auto) 0.06 H 0.09 H Absolute Nucleated RBC 0.00 0.00 Immature Gran % 1 H 1 H Nucleated RBC % 0 0 PT 9.7 INR 0.9 APTT 25.4 Fibrinogen 525 H Sodium 140 Potassium 4.0 Chloride 109 H Carbon Dioxide 18.6 L Anion Gap 12 BUN 6 L Creatinine 0.6 Estim Creat Clear Calc 135.0 eGFR > 60 BUN/Creatinine Ratio 10 L Glucose 127 H Calculated Osmolality 279 Uric Acid 3.9 Calcium 8.7 Corrected Calcium 8.8 Total Bilirubin 0.3 AST 17 ALT < 7 L Alkaline Phosphatase 126 H Lactate Dehydrogenase 190 Total Protein 6.9 Albumin 3.9 Globulin 3.0 Albumin/Globulin Ratio 1.3 Ur Collection Type Clean Catch Urine Color Yellow Urine Clarity Hazy Urine pH 6.5 Ur Specific [place] 1.020 Urine Protein Negative Urine Glucose (UA) Negative Urine Ketones Negative Urine Blood Negative Urine Nitrite Positive Urine Bilirubin Negative Urine Urobilinogen (Auto) Negative Ur Leukocyte Esterase Positive Urine RBC 4 H Urine WBC 15 H Ur Squamous Epith Cells 21 H Urine Bacteria 4+ A Ur Random Creatinine 92 U Random Total Protein 20 H Syphilis Serology Nonreactive Blood Type A Positive Antibody Screen NEGATIVE Blood Bank Wristband ID Yes Assessment & Plan Problem List (1) Gestational hypertension: Status: Acute Assessment and plan: patient doing well anticipate discharge tomorrow (2) Encounter for supervision of high risk in third trimester, antepartum: Status: Acute (3) Previous section: Status: Acute (4) Post-operative state: Status: Acute Time Spent With Patient Time: Total time spent is greater than 50% in coordination of care (as documented) at patient's floor/unit and/or counseling patient:
[2025-01-21 11:56] VITALS: BP 123/71; PULSE 75; RESP 18; TEMP 36.7; O2SAT 99
[2025-01-21 16:10] VITALS: BP 123/78; PULSE 71; RESP 16; TEMP 36.7; O2SAT 99
[2025-01-21] MEDS: IBUPROFEN TAB 400 MG TABLET 800 MG PO (19:35)
[2025-01-21 20:00] VITALS: BP 135/76; PULSE 75; RESP 16; TEMP 37.1; O2SAT 98
[2025-01-22 03:50] VITALS: BP 131/70; PULSE 81; RESP 14; TEMP 36.9; O2SAT 99
--- NOTE | 2025-01-22 07:51 | OBDSUM_ITS ---
Data ([facility]) Data Hx Section: Yes (2022) : 2 Term: 1 : 0 Livin Abortions: Spontaneous & Theraputic: 0 Delivery Data ([facility]) Labor Data Induction/Augmentation Agent: None ROM date: 01/20/25 ROM time: 20:55 Amniotic membrane rupture type: Artificial Amniotic fluid description: Clear Delivery Data delivery date: 01/20/25 [place] delivery time: 20:55 Placenta delivery date: 01/20/25 Placenta delivery time: 20:56 Delivered by: nicole Delivery nurse: Britta Hutton nurse: Marcelle Berumen Logistics Support at delivery: Yes (Dr Boland) Support person(s) at delivery: father of baby Delivery Method Delivery method: Low Transverse Presentation: Vertex Anesthesia Type Anesthesia Type: Spinal Anesthesia type: Spinal Placenta Placenta delivery description: Manual Removal Cord blood sent to lab: No cord blood collection: Cord Blood Type Episiotomy Episiotomy description: None Umbilical Cord cord description: 3 Vessels [place] Data ([facility]) [place] Data order: 1 's gender: Female Identification band number: [id number] weight (gms): 3350 g Weight (pounds): 7 lbs and 6.2 ozs [place] length: 53.34 cm 1 minute: 8 5 minutes: 8
--- NOTE | 2025-01-22 07:52 | ESPR_ITS ---
Subjective Subjective Interval history: Delivery type: Patient doing well this morning. No acute complaints. Ambulating, tolerating p.o., and voiding without difficulty. HTN/Pre-E screen negative: No CP, SOB, ARIZMENDI, visual changes, RUQ pain. : Yes Lochia: diminishing Bowel: Flatus + / BM + UOP: Voiding freely Exam Vital Signs Temp Pulse Resp BP Pulse Ox O2 Del Method 98.5 F 81 14 131/70 H 99 Room Air 01/22/25 03:50 01/22/25 03:50 01/22/25 03:50 01/22/25 03:50 01/22/25 03:50 01/22/25 03:50 Constitutional Constitutional: no acute distress Routine HEENT Exam Head: Present normocephalic and atraumatic Eye: Present EOMI and PERRL ENT: Present mucous membranes moist Routine Neck Exam Neck: Present supple and trachea midline Routine Respiratory Exam Respiratory: Present chest non-tender, lungs clear, normal breath sounds and no resp distress Routine Cardiovascular Exam Cardiovascular: Present RRR Routine Abdominal Exam Abdominal: Present soft and normoactive bowel sounds Routine Extremities Exam Extremities: Present full ROM Routine Skin Exam Skin: Present intact, dry and warm Routine Neurological Exam Neurological: Present alert, oriented X3 and CN II-XII intact Routine Psychiatric Exam Psychiatric: Present normal affect and normal thought process Objective Labs 01/21/25 04:15 01/20/25 11:55 Assessment & Plan Problem List (1) Gestational hypertension: Status: Acute (2) Encounter for supervision of high risk in third trimester, antepartum: Status: Acute (3) Previous section: Status: Acute (4) Post-operative state: Status: Acute (5) delivery delivered: Status: Acute Assessment and plan: PPD/POD#2 1. Continue routine care 2. Transition to PO meds. 3. Encourage to ambulate/ breast-feed 4. Anticipate discharge home today. In the evening as she was a evening C- section Time Spent With Patient Time: Total time spent is greater than 50% in coordination of care (as documented) at patient's floor/unit and/or counseling patient:
--- NOTE | 2025-01-22 07:53 | PD.LDDS ---
DS: Providers Provider Date of admission: 01/20/25 13:20 Primary care physician: Physician No Primary/Family Admitting Provider: Keegan Deal MD Attending Provider on Admission: Keegan Deal MD Consults: 01/20/25 22:28 Referral Routine Comment: Attending Provider on DC: Keegan Deal MD Discharging Provider: Keegan Deal MD DS: Diagnosis Discharge Diagnosis (1) delivery delivered: Status: Acute (2) Encounter for supervision of high risk in third trimester, antepartum: Status: Acute (3) Previous section: Status: Acute (4) Gestational hypertension: Status: Acute Problem List Completed Was Problem List Reviewed/Reconciled?: Yes Summary/Hosp Course Brief History: Patient is a 29-year-old 2 para 1-0-0-1 at 37 weeks and 6 days with estimated due date of 02/04/2025 with history of previous who presented to the office where she was noted to have new onset hypertension. Patient has been reporting some floaters in her visual field but she denies any headache she denies any epigastric or right upper quadrant pain or any other associated complaints. Patient denies any contractions or leakage of fluid or vaginal bleeding. Peripartum Data Delivery Method: Low Transverse Episiotomy Description: None Procedures: Procedures Operation Date: 01/20/25 19:45 Actual Procedure Side Surgeon p in OB Not Applicable Keegan Deal MD Time Spent with Patient Time attestation: Total time spent providing and/or coordinating discharge services: Exam Vital Signs Temp Pulse Resp BP Pulse Ox O2 Del Method 98.5 F 81 14 131/70 H 99 Room Air 01/22/25 03:50 01/22/25 03:50 01/22/25 03:50 01/22/25 03:50 01/22/25 03:50 01/22/25 03:50 Discharge Plan Plan Patient Disposition: HOME (Self Care) Patient condition on transfer: Stable Prescriptions/Referrals Prescriptions/Med Rec: New hydrocodone-acetaminophen 5-325 mg tablet 1 tab PO Q6H MDD 4 PRN (Reason: pain) 5 Days Qty: 20 0RF docusate sodium [Stool Softener] 100 mg capsule 100 mg PO QDAY 30 Days Qty: 30 0RF ibuprofen 600 mg tablet 600 mg PO Q6H MDD 4 PRN (Reason: fever or pain) 10 Days Qty: 40 0RF Continued PNV [id number] 90 mg iron- 1 mg-200 mg capsule 1 cap PO QDAY Referrals: Keegan Deal MD [Physician, [employer]] No Primary/Family,Physician [Primary Care Provider] Patient/Caregiver Discharge Instructions Meds to Beds: Yes Discharge Activity: activity as tolerated Education Materials: After Delivery Concerns, Breast Care After , After a , Nutrition While , Understanding Depression, : Caring for Yourself, C Section Dc, Feel Healthy After Print Language: Icelandic Stand Alone Forms: [facility] Award Info., Patient Portal Info Letter, DC from Surgery Discharge Order Discharge Orders: Discharge (Routine); Ordered 01/22/25 Ordered By: Keegan Deal Planned Discharge Date 01/22/25
[2025-01-22] MEDS: IBUPROFEN TAB 400 MG TABLET 800 MG PO (10:01)
[2025-01-22 11:00] VITALS: BP 136/92; PULSE 98; RESP 18; TEMP 36.8; O2SAT 99
[2025-01-22 12:00] VITALS: BP 123/82; PULSE 90; RESP 18; TEMP 36.2; O2SAT 99
== END 2025-01-22 15:24 | disposition home or self-care (01) | DRG 788 ==
LOC: S4S1 14:27 → S4SX 14:27 → S4NX 21:30
PROVIDERS: Admitting Provider Obstetrics & Gynecology; Referring Provider Obstetrics & Gynecology; Visit Provider Obstetrics & Gynecology
PROC: 10D00Z1 Extraction of Products of Conception, Low, Open Approach (ICD-10-PCS; CPT 59514; principal; 2025-01-20 19:30)
DX: O34.211 Maternal care for low transverse scar from previous cesarean delivery (principal); O13.4 Gestational [pregnancy-induced] hypertension without significant proteinuria, complicating childbirth; Z37.0 Single live birth; Z3A.37 37 weeks gestation of pregnancy
CPT/HCPCS: 36415; 59025; 80053; 81001; 82570; 83615; 84156; 84550; 85025; 85384; 85610; 85730; 86780; 86850; 86900; 86901; 94762; A4217; A4314; A4649; J0689; J1100; J1885; J2371; J2405; J2590; J3010; J3490; A9270